=== PATIENT | female | born 1940 | race Caucasian/White ===

== ENCOUNTER → 2017-03-13 | Outpatient (CLI) | payer MEDICARE, BC ==
--- NOTE | 2017-03-14 12:52 | MM ---
Reason for exam: screening (asymptomatic). Last mammogram was performed 1 year and 1 month ago. History: Patient is postmenopausal and has history of other cancer at age 68. Family history of breast cancer in maternal aunt. Benign right mammotome panel of the right breast, February 06, 2013. Took estrogen for 5 years beginning at age 48. Physical Findings: A clinical breast exam by your physician is recommended on an annual basis and results should be correlated with mammographic findings. MG 3D Screening Mammo W/Cad Bilateral CC and MLO view(s) were taken. Prior study comparison: February 08, 2016, bilateral MG 3d screening mammo w/cad. February 04, 2015, bilateral MG 3d diag mammo w/cad KATIANA. The breast tissue is heterogeneously dense. This may lower the sensitivity of mammography. Finding: There are typically benign round, linear calcifications in both breasts. Previous mammotome biopsy in the right and left breast. There is no discrete abnormality. ASSESSMENT: Benign, BI-RAD 2 RECOMMENDATION: Routine screening mammogram of both breasts in 1 year.
== END | disposition home or self-care (01) ==
LOC: RADMAMWWP 13:10
PROVIDERS: ATTEND Family Medicine
DX: Z12.31 Encounter for screening mammogram for malignant neoplasm of breast (principal)
CPT/HCPCS: 77063; 77067

== ENCOUNTER → 2017-03-19 | Outpatient (CLI) | payer MEDICARE, BC ==
[~2017-03-19] MED LIST: DENOSUMAB 60 MG/ML 1 ML SYRINGE SQ ONE
[2017-03-19 14:10] VITALS: BP 123/58; PULSE 63; RESP 14; TEMP 98.3
== END | disposition home or self-care (01) ==
LOC: PROCWHC3 13:14
PROVIDERS: ATTEND Family Medicine
DX: M81.0 Age-related osteoporosis without current pathological fracture (principal)
CPT/HCPCS: 96372; J0897

== ENCOUNTER 2017-07-26 23:35 | Observation (INO) | payer MEDICARE, BC ==
[2017-07-26] MEDS ORDERED: NITROGLYCERIN SL TABS 0.4 MG TAB SUBLINGUAL STA (23:49)
[2017-07-26] MEDS ORDERED: NITROGLYCERIN OINT 1 INCH/GM PACKET TOPICAL STA (23:49)
--- NOTE | 2017-07-26 23:51 | ED ---
Chest Pain HPI - General Chief Complaint: Chest Pain Stated Complaint: Chest Pain Time Seen by Provider: 07/26/17 23:41 Source: patient, EMS Mode of arrival: EMS Limitations: no limitations - History of Present Illness MD Complaint: chest pain Onset/Timin -: hour(s) Onset: during rest Pain Location: substernal, epigastric Pain Radiation: none Severity: mild Quality: other (Pressure) Consistency: now resolved Improves With: nitroglycerin Worsens With: nothing Anginal Symptoms: nausea, diaphoresis Treatments Prior to Arrival: aspirin, nitroglycerin, oxygen - Related Data Home Medications Medication Instructions Recorded Confirmed Denosumab [Prolia] 60 mg SQ Q6M 08/17/13 03/19/17 Levothyroxine Sodium [Synthroid] 112 mcg PO DAILY 08/17/13 03/19/17 Acetaminophen/Diphenhydramine 1 tab PO HS 08/18/14 03/19/17 [Tylenol PM 500-25mg] Cholecalciferol [Vitamin D3] 2,000 unit PO DAILY@1200 08/18/14 03/19/17 Glucosamine/Chondr Gilliland A Sod [Osteo 1 each PO BID 08/18/14 03/19/17 Bi-Flex Caplet] Calcium Carbonate [Calcium] 600 mg PO 03/19/17 Valsartan [Diovan] 40 mg PO DAILY 03/19/17 03/19/17 Allergies Allergy/AdvReac Type Severity Reaction Status Date / Time No Known Allergies Allergy Verified 07/26/17 23:46 Review of Systems ROS Statement: Those systems with pertinent positive or pertinent negative responses have been documented in the HPI. ROS Other: All systems not noted in ROS Statement are negative. Constitutional: Denies: fever, chills Respiratory: Reports: as per HPI, dyspnea. Denies: cough Cardiovascular: Reports: chest pain. Denies: palpitations, orthopnea, edema, syncope Gastrointestinal: Reports: nausea. Denies: abdominal pain, vomiting Genitourinary: Denies: dysuria Musculoskeletal: Denies: back pain Skin: Denies: rash Neurological: Denies: headache, weakness, numbness EKG Findings - EKG Results: EKG: interpreted by BHANU, sinus rhythm (Rate is proximal 63 bpm) - Blocks, Castile, Hypertrophy, ST Abn: AV and intraventricular conduction: left anterior fascicular block Past Medical History Past Medical History: Cancer, Eye Disorder, Thyroid Disorder Additional Past Medical History / Comment(s): SEE DR SANTANA'S H&P, HX THYROID , SKIN AND CERVICAL CANCER. History of Any Multi-Drug Resistant Organisms: None Reported Past Surgical History: Cholecystectomy, Hernia Repair, Hysterectomy, Orthopedic Surgery Additional Past Surgical History / Comment(s): KATIANA CATARACT, THYROIDECTOMY-2006 , MELANOMA REMOVED X2. Past Anesthesia/Blood Transfusion Reactions: Postoperative Nausea & Vomiting ( PONV) Past Psychological History: No Psychological Hx Reported Smoking Status: Never smoker Past Alcohol Use History: None Reported Past Drug Use History: None Reported General Exam Limitations: no limitations General appearance: alert, in no apparent distress Head exam: Present: atraumatic, normocephalic Eye exam: Present: normal appearance. Absent: scleral icterus, conjunctival injection Neck exam: Present: normal inspection Respiratory exam: Present: normal lung sounds bilaterally. Absent: respiratory distress, wheezes, rales, rhonchi, stridor Cardiovascular Exam: Present: regular rate, normal rhythm, systolic murmur ( Grade 1/6 systolic ejection murmur). Absent: normal heart sounds, diastolic murmur, rubs, gallop GI/Abdominal exam: Present: soft. Absent: distended, tenderness, guarding, rebound, mass Extremities exam: Present: normal inspection, normal capillary refill. Absent: pedal edema, calf tenderness Back exam: Present: normal inspection. Absent: CVA tenderness (R), CVA tenderness (L) Neurological exam: Present: alert Skin exam: Present: warm, dry, intact, normal color. Absent: rash Course Vital Signs 07/26/17 07/27/17 07/27/17 23:39 00:32 00:46 Temperature 99.3 F Pulse Rate 62 77 Respiratory 18 20 18 Rate Blood Pressure 163/70 124/71 O2 Sat by Pulse 99 97 Oximetry 07/27/17 01:30 Temperature 97.4 F L Pulse Rate 80 Respiratory 18 Rate Blood Pressure 126/70 O2 Sat by Pulse 98 Oximetry Disposition Clinical Impression: Chest pain Disposition: ADMITTED IP TO THIS HOSP Condition: Fair Is patient prescribed a controlled substance at d/c from ED?: No
[2017-07-27 00:09] LABS: Basophils % (A) 1 %; Eosinophils # (A) 0.3 k/uL (0-0.7); Eosinophils % (A) 5 %; HCT 31.2 % (34.0-46.0); HGB 10.4 gm/dL (11.4-16.0); Lymphocytes # (A) 2.1 k/uL (1.0-4.8); Lymphocytes % (A) 37 %; MCH 30.2 pg (25.0-35.0); MCHC 33.4 g/dL (31.0-37.0); MCV 90.5 fL (80.0-100.0); Mean Platelet Volume 6.9; Monocytes # (A) 0.4 k/uL (0-1.0); Monocytes % (A) 6 %; Neutrophils # (A) 2.8 k/uL (1.3-7.7); Neutrophils % (A) 48 %; Platelet Count 251 k/uL (150-450); RBC 3.45 m/uL (3.80-5.40); RDW 13.2 % (11.5-15.5); WBC 5.8 k/uL (3.8-10.6)
[2017-07-27 00:17] LABS: Albumin 3.3 g/dL (3.5-5.0); Calcium 9.1 mg/dL (8.4-10.2); Magnesium 1.7 mg/dL (1.6-2.3); Potassium 3.7 mmol/L (3.5-5.1); Total Bilirubin 0.3 mg/dL (0.2-1.3); Total Protein 5.6 g/dL (6.3-8.2)
[2017-07-27 00:23] LABS: INR 1.1 (<1.2); Prothrombin Time 10.6 sec (9.0-12.0)
--- NOTE | 2017-07-27 00:35 | XR ---
EXAMINATION TYPE: XR chest 1V portable DATE OF EXAM: 07/27/2017 COMPARISON: 04/23/2013 HISTORY: Chest pain TECHNIQUE: Single frontal view of the chest is obtained. FINDINGS: Heart is normal. Lungs are clear of consolidation. There is a 1.5 cm calcific density in t he left midlung. There is no pleural effusion. There are chest leads. Diaphragm is normal. IMPRESSION: Calcification in the left midlung is consistent with a granuloma that is increased sligh tly compared to old exam. Normal heart. No heart failure.
[2017-07-27 00:39] LABS: Partial Thromboplastin Time 21.6 sec (22.0-30.0)
[2017-07-27] MEDS ORDERED: NITROGLYCERIN SL TABS 0.4 MG TAB SUBLINGUAL PRN (01:12)
[2017-07-27] MEDS ORDERED: ENOXAPARIN 80 MG/0.8 ML SYRINGE SQ STA (01:16)
[2017-07-27 01:47] VITALS: BMI 26.8
[2017-07-27] MEDS: LEVOTHYROXINE 112 MCG TAB PO SCH (06:28)
[2017-07-27 06:48] LABS: Creatine Kinase 39 U/L (30-135)
[2017-07-27 07:02] LABS: Creatine Kinase MB 0.4 ng/mL (0.0-2.4); Troponin I <0.012 ng/mL (0.000-0.034)
[2017-07-27] MEDS: CALCIUM CARBONATE 500 MG CHEWABLE PO SCH (08:29)
[2017-07-27] MEDS: VALSARTAN 40 MG TAB PO SCH (09:19)
[2017-07-27] MEDS ORDERED: Potassium Replacement Protocol 1 EACH MISC MISCELLANE PRN (09:43)
[2017-07-27] MEDS ORDERED: Magnesium Replacement Protocol 1 EACH MISC MISCELLANE PRN (09:44)
[2017-07-27] MEDS ORDERED: POTASSIUM CHLORIDE ER 20 MEQ TAB.ER PO SCH (10:00)
[2017-07-27] MEDS: MAGNESIUM SULFATE-D5W PMX 1 GM in DEXTROSE/WATER 1 100ML.BAG IVPB SCH ×2 (10:36→15:58)
[2017-07-27] MEDS: METOPROLOL TARTRATE 12.5 MG TAB PO SCH ×2 (10:36→20:08)
[2017-07-27] MEDS ORDERED: CHOLECALCIFEROL 1,000 UNIT TAB PO SCH (12:00)
[2017-07-27 13:08] LABS: Creatine Kinase 34 U/L (30-135)
[2017-07-27] MEDS: ENOXAPARIN 80 MG/0.8 ML SYRINGE SQ SCH ×2 (13:16→20:08)
[2017-07-27 13:21] LABS: Creatine Kinase MB 0.3 ng/mL (0.0-2.4); Troponin I <0.012 ng/mL (0.000-0.034)
--- NOTE | 2017-07-27 14:08 | P.HPIM ---
History of Present Illness H&P Date: 07/27/17 This is a 77-year-old female with past medical history noted below who presented to the emergency room with chest discomfort. Patient said that her pain started last night when she was getting ready for bed. She described her pain as heaviness deep in her chest. She said that this started all of a sudden. He was not associated with any exertion. No radiation. No shortness of breath or dizziness. Patient was unable to get comfortable in bed and was concerned enough to come to the emergency room. In the emergency room, 12-lead EKG showed no acute ischemic changes. She is currently chest pain-free. Serial troponin negative 3 sets. Patienton observation awaiting cardiology evaluation. Review of Systems Review of system: 14 points review of systems were obtained and were negative except to what were mentioned in the HPI. Past Medical History Past Medical History: Cancer, Chest Pain / Angina, Eye Disorder, Thyroid Disorder Additional Past Medical History / Comment(s): SEE DR SANTANA'S H&P, HX THYROID , SKIN AND CERVICAL CANCER. History of Any Multi-Drug Resistant Organisms: None Reported Past Surgical History: Cholecystectomy, Hernia Repair, Hysterectomy, Orthopedic Surgery Additional Past Surgical History / Comment(s): KATIANA CATARACT, THYROIDECTOMY-2006 , MELANOMA REMOVED X2. Past Anesthesia/Blood Transfusion Reactions: Postoperative Nausea & Vomiting ( PONV) Past Psychological History: No Psychological Hx Reported Smoking Status: Never smoker Past Alcohol Use History: None Reported Additional Past Alcohol Use History / Comment(s): states drinks a glass of wine once a month Past Drug Use History: None Reported Medications and Allergies Home Medications Medication Instructions Recorded Confirmed Type Denosumab [Prolia] 60 mg SQ Q180D 08/17/13 07/27/17 History Levothyroxine Sodium [Synthroid] 112 mcg PO DAILY 08/17/13 07/27/17 History Acetaminophen/Diphenhydramine 1 tab PO HS PRN 08/18/14 07/27/17 History [Tylenol PM 500-25mg] Cholecalciferol [Vitamin D3] 2,000 unit PO DAILY 08/18/14 07/27/17 History Glucosamine/Chondr Gilliland A Sod [Osteo 1 tab PO BID 08/18/14 07/27/17 History Bi-Flex Caplet] Calcium Carbonate [Calcium] 600 mg PO MOWEFR 03/19/17 07/27/17 History Valsartan [Diovan] 40 mg PO DAILY 03/19/17 07/27/17 History Allergies Allergy/AdvReac Type Severity Reaction Status Date / Time No Known Allergies Allergy Verified 07/27/17 12:12 Physical Exam Vitals: Vital Signs Temp Pulse Pulse Resp BP BP Pulse Ox 07/27/17 11:42 52 L 18 119/58 96 07/27/17 08:00 97.9 F 55 L 18 102/49 96 07/27/17 03:30 97.4 F L 58 L 18 111/55 98 07/27/17 02:19 99 07/27/17 01:45 97.0 F L 54 L 18 145/65 99 07/27/17 01:30 97.4 F L 80 18 126/70 98 07/27/17 00:46 77 18 124/71 97 07/27/17 00:32 20 07/26/17 23:39 99.3 F 62 18 163/70 99 Intake and Output 07/26/17 07/27/17 07/27/17 22:59 06:59 14:59 Intake Total 0 Balance 0 Intake: Oral 0 Other: # Voids 1 Weight 70.9 kg General: The patient is awake and alert, in no distress Eye: there is normal conjunctiva bilaterally. Neck: The neck is supple, there is no JVD. Cardiovascular: Normal S1-S2, no S3-S4, no murmurs. Respiratory: Lungs clear to auscultation bilaterally Gastrointestinal: Abdomen is soft, nontender Musculoskeletal: There is no pedal edema. Neurological:. Speech is normal. Skin: Skin is warm and dry Results CBC & Chem 7: 07/26/17 23:50 07/26/17 23:50 Labs: Abnormal Lab Results - Last 24 Hours (Table) 07/26/17 07/26/17 07/26/17 Range/Units 23:50 23:50 23:50 RBC 3.45 L (3.80-5.40) m/uL Hgb 10.4 L (11.4-16.0) gm/dL Hct 31.2 L (34.0-46.0) % APTT 21.6 L (22.0-30.0) sec BUN 20 H (7-17) mg/dL Glucose 126 H (74-99) mg/dL Total Protein 5.6 L (6.3-8.2) g/dL Albumin 3.3 L (3.5-5.0) g/dL Thrombosis Risk Factor Assmnt - Choose All That Apply Any of the Below Risk Factors Present?: No Other Risk Factors: Yes Each Risk Factor Represents 3 Points: Age 75 years or older Other congenital or acquired thrombophilia - If yes, enter type in comment: No Thrombosis Risk Factor Assessment Total Risk Factor Score: 3 Thrombosis Risk Factor Assessment Level: Moderate Risk Assessment and Plan Assessment: 1. Chest pain, mostly atypical in nature. 12-lead EKG showed no acute ischemic changes. Serial troponin negative 3 sets. Patient was seen and evaluated by cardiology. She was started on anticoagulation with Lovenox for unclear reasons to me. I would clarify further with cardiology. Will continue medical management otherwise. Obtain echocardiogram. 2. Essential hypertension: Blood pressure well-controlled 3. Bradycardia, patient was also started on metoprolol by cardiology so we will monitor her heart rate closely. Currently in the low 50s.
[2017-07-27] MEDS ORDERED: ACETAMINOPHEN TAB 500 MG TAB PO SCH (21:00)
[2017-07-27] MEDS ORDERED: diphenhydrAMINE 25 MG CAP PO SCH (21:00)
--- NOTE | 2017-07-28 03:58 | CONS ---
CONSULTATION Gina Reyes is a 77-year-old lady with a history of thyroid cancer, hypertension who presented to the hospital with episode of chest pain. She actually had discomfort in the chest at home, called in EMS and was brought into the hospital. Apparently, she was given nitroglycerin en route and obtained immediate relief of chest pain. She also had another nitroglycerin in the hospital. However, no further pain. She is asymptomatic. Troponins are normal. She is resting comfortably. EKG is unremarkable. PAST MEDICAL HISTORY: 1. Remarkable for thyroid cancer status post surgery and on suppressive therapy. 2. Has history of hypertension. ALLERGIES: None. MEDICATIONS: Include Diovan 40 mg daily, calcium supplements, Synthroid 112 mcg daily and vitamin D supplements. The patient is status post a loop recorder and a tilt test that was performed by Dr. Howell in January 2016. She has not had any issues since she had the loop recorder in terms of syncope or near syncope. EXAMINATION: Blood pressure is 118/70, pulse rate is 60 per minute. There is were no orthostatic changes. HEENT: Unremarkable. Fundus was not examined by me neck is. NECK: Supple. There is no JVD. There is a left-sided carotid bruit. HEART: Reveals a 2/6 ejection systolic murmur at the base with preserved second heart sounds. LUNGS: Clear. ABDOMEN: Soft, nontender. Lower extremities reveal diminished pulses. No edema. Central nervous system is grossly within normal limits. EKG revealed a sinus mechanism with the left anterior fascicular block. No acute changes. LABORATORY DATA: Reveals that 2 sets of troponins are normal. IMPRESSION: 1. Chest pain, cannot exclude angina. She obtained relief with nitroglycerin. 2. History of syncope in the past but no recent issues. Has a loop recorder in place. 3. History of hypertension. 4. History of thyroid cancer status post surgery and on suppressive therapy. RECOMMENDATIONS: I am recommending that we will continue Lovenox and monitor her very closely and see how she does. I will continue the Lovenox for the time being, place her on a very small dose of metoprolol tartrate 12.5 mg b.i.d. and increase activity and if she has no further chest pain, I will consider the stress test, but if she has any symptoms we should consider cardiac catheterization. I discussed my thoughts in detail with the patient and her . Thank you very much for the consult. JAYCOB / MICHELL: [id number] /
[2017-07-28] MEDS: LEVOTHYROXINE 112 MCG TAB PO SCH (06:22)
[2017-07-28 06:42] LABS: Magnesium 2.2 mg/dL (1.6-2.3)
--- NOTE | 2017-07-28 07:54 | ECHOF ---
Referral Reason:chest pain MEASUREMENTS -------- HEIGHT: 162.6 cm WEIGHT: 70.8 kg BP: 102/49 RVIDd: 2.9 cm (< 3.3) IVSd: 1.3 cm (0.6 - 1.1) LVIDd: 3.5 cm (3.9 - 5.3) LVPWd: 1.3 cm (0.6 - 1.1) IVSs: 1.5 cm LVIDs: 2.3 cm LVPWs: 1.5 cm LAESV Index (A-L): 28.41 ml/m Ao Diam: 2.5 cm (2.0 - 3.7) AV Cusp: 1.5 cm (1.5 - 2.6) LA Diam: 3.3 cm (2.7 - 3.8) EPSS: 0.6 cm MV E Jefferson: 0.84 m/s MV DecT: 259 ms MV A Jefferson: 0.97 m/s MV E/A Ratio: 0.86 RAP: 5.00 mmHg RVSP: 23.18 mmHg MV EF SLOPE: 108.77 mm/s (70 - 150) MV EXCURSION: 1.49 cm (> 18.000) FINDINGS -------- Resting bradycardia (HR<60bpm). This was a technically good study. The left ventricular size is normal. There is mild concentric left ventricular hypertrophy. Overa ll left ventricular systolic function is normal with, an EF between 55 - 60 %. The right ventricle is normal in size and function. Normal LA size by volume 22+/-6 ml/m2. RA appears enlarged. Aortic valve is trileaflet and is mildly thickened. There is no evidence of aortic regurgitation. There is no evidence of aortic stenosis. The mitral valve leaflets are mildly thickened. There is trace to mild mitral regurgitation. Trace tricuspid regurgitation present. Right ventricular systolic pressure is normal at < 35 mmHg. There is no evidence of pulmonary hypertension. Trace/mild (physiologic) pulmonic regurgitation. The aortic root size is normal. Normal inferior vena cava with normal inspiratory collapse consistent with estimated right atrial pre ssure of 5 mmHg. There is no pericardial effusion. CONCLUSIONS -------- 1. Resting bradycardia (HR<60bpm). 2. This was a technically good study. 3. The left ventricular size is normal. 4. There is mild concentric left ventricular hypertrophy. 5. Overall left ventricular systolic function is normal with, an EF between 55 - 60 %. 6. Normal LA size by volume 22+/-6 ml/m2. 7. RA appears enlarged. 8. Aortic valve is trileaflet and is mildly thickened. 9. The mitral valve leaflets are mildly thickened. 10. There is trace to mild mitral regurgitation. 11. Trace tricuspid regurgitation present. 12. Right ventricular systolic pressure is normal at < 35 mmHg. 13. There is no evidence of pulmonary hypertension. 14. Trace/mild (physiologic) pulmonic regurgitation. 15. The aortic root size is normal. 16. There is no pericardial effusion. COMPUTER NETWORKING INSTRUCTOR: Sunny Alva RDCS
[2017-07-28] MEDS: CALCIUM CARBONATE 500 MG CHEWABLE PO SCH (08:00)
[2017-07-28] MEDS: VALSARTAN 40 MG TAB PO SCH (08:00)
[2017-07-28] MEDS: METOPROLOL TARTRATE 12.5 MG TAB PO SCH (08:00)
[2017-07-28] MEDS: ENOXAPARIN 80 MG/0.8 ML SYRINGE SQ SCH (08:00)
[2017-07-28 08:02] VITALS: BP 110/54; PULSE 52; RESP 16; TEMP 98.2
[2017-07-28 08:33] LABS: Calcium 8.8 mg/dL (8.4-10.2); Potassium 4.3 mmol/L (3.5-5.1)
[2017-07-28] MEDS ORDERED: ASPIRIN 325 MG TAB PO SCH (09:00)
[2017-07-28] MEDS ORDERED: ASPIRIN 81 MG PO SCH (09:00)
--- NOTE | 2017-07-28 13:59 | PN ---
PROGRESS NOTE Mrs. Reyes came in with chest pain with some relief with nitroglycerin but since her presentation to the hospital, she has not had recurrence of chest pain. Troponins are normal. She has ambulated to the hallways without symptoms. I am recommending that she can be discharged and we will perform a stress test as an outpatient. She sees Dr. Howell in the outpatient setting and I will make arrangements for the stress test to be performed and then she will see him. Vital signs are stable. S1-S2 heard normally. Lungs are clear. Abdomen is soft, nontender. Lower extremities reveal normal pulses. No edema. Central nervous system is normal. Patient can be discharged later on today. MMODL / IJN: [id number] /
== END 2017-07-28 12:29 | disposition home or self-care (01) ==
LOC: EC 23:35 → 6SEL 07-27 01:13
PROVIDERS: ADMIT Internal Medicine; ATTEND Internal Medicine
DX: R07.89 Other chest pain (principal); R61 Generalized hyperhidrosis; R11.0 Nausea; I10 Essential (primary) hypertension; R00.1 Bradycardia, unspecified; E07.9 Disorder of thyroid, unspecified; Z79.890 Hormone replacement therapy; Z79.899 Other long term (current) drug therapy; Z86.79 Personal history of other diseases of the circulatory system; Z85.850 Personal history of malignant neoplasm of thyroid; Z85.41 Personal history of malignant neoplasm of cervix uteri; Z85.820 Personal history of malignant melanoma of skin; Z90.710 Acquired absence of both cervix and uterus; Z90.49 Acquired absence of other specified parts of digestive tract
CPT/HCPCS: 36415; 71045; 80048; 80053; 80061; 82550; 82553; 83735; 84484; 85025; 85610; 85730; 93005; 93306; 96365; 96366; 96372; 99285

== ENCOUNTER → 2017-09-17 | Outpatient (CLI) | payer MEDICARE, BC ==
[2017-09-17 09:23] VITALS: BP 132/65; PULSE 65; RESP 16; TEMP 98.3
== END | disposition home or self-care (01) ==
LOC: PROCWHC3 09:10
PROVIDERS: ATTEND Family Medicine
DX: M81.0 Age-related osteoporosis without current pathological fracture (principal)
CPT/HCPCS: 96372; J0897

== ENCOUNTER → 2017-11-22 | Outpatient (CLI) | payer MEDICARE, BC ==
--- NOTE | 2017-11-22 11:26 | US ---
EXAMINATION TYPE: US duplex aorta DATE OF EXAM: 11/22/2017 COMPARISON: NONE CLINICAL HISTORY: R91.8 soft tissue nod R68.89 abnorm finding. No family hx of AAA, nonsmoker. High cholesterol- no meds. HTN controlled with meds. Per patient, x-ray showed aortic bulge EXAM MEASUREMENTS: Abdominal Aorta: Proximal: 2.2 x 1.7 cm Mid: 1.7 x 1.6 cm Distal: 1.3 x 1.1 cm Bifurcation: Right- 0.9 x 0.7 cm Left- 1.0 x 0.7 cm IMPRESSION: Plaque seen. No AAA visualized.
== END ==
LOC: RADUSWWP 10:48
PROVIDERS: ATTEND Family Medicine
DX: I70.0 Atherosclerosis of aorta (principal)
CPT/HCPCS: 93979

== ENCOUNTER → 2018-03-25 | Outpatient (CLI) | payer MEDICARE, BC ==
[2018-03-25 11:11] VITALS: BP 150/81; PULSE 64; RESP 18; TEMP 97.6
== END | disposition home or self-care (01) ==
LOC: PROCWHC3 10:45
PROVIDERS: ATTEND Family Medicine
DX: M81.0 Age-related osteoporosis without current pathological fracture (principal)
CPT/HCPCS: 96372; J0897

== ENCOUNTER 2018-04-16 07:57 | Day surgery (SDC) | payer MEDICARE, BC ==
[2018-04-14 09:02] VITALS: BMI 24.6
[~2018-04-16 07:57] MED LIST changes: -DENOSUMAB 60 MG/ML 1 ML SYRINGE SQ ONE; +LACTATED RINGERS 1,000 ML IV SCH; +LIDOCAINE 1% 20 ML VIAL (10MG/ML) FOR IV START INTRADERMA PRN
[2018-04-16 08:47] VITALS: TEMP 97.8
[2018-04-16] MEDS ORDERED: PROPOFOL 10 MG/ML 20 ML VIAL IV ONE (08:48)
--- NOTE | 2018-04-16 08:50 | P.GSHP ---
History of Present Illness H&P Date: 04/16/18 Chief Complaint: Colon cancer screening Patient here today for colonoscopy. Last colonoscopy over 5 years ago. Personal history of colon polyps. No family history colon cancer. No bowel related complaints. Past Medical History Past Medical History: Cancer, Chest Pain / Angina, Hypertension, Thyroid Disorder Additional Past Medical History / Comment(s): HX THYROID, SKIN AND CERVICAL CANCER. History of Any Multi-Drug Resistant Organisms: None Reported Past Surgical History: Cholecystectomy, Hernia Repair, Hysterectomy, Orthopedic Surgery Additional Past Surgical History / Comment(s): KATIANA CATARACT, THYROIDECTOMY-2005 , MELANOMA REMOVED X2., LT KNEE SX, COLONOSCOPY Past Anesthesia/Blood Transfusion Reactions: Postoperative Nausea & Vomiting ( PONV) Smoking Status: Never smoker - Past Family History Mother Family Medical History: No Reported History Medications and Allergies Home Medications Medication Instructions Recorded Confirmed Type Denosumab [Prolia] 60 mg SQ Q180D 08/17/13 04/16/18 History Levothyroxine Sodium [Synthroid] 112 mcg PO DAILY 08/17/13 04/16/18 History Cholecalciferol [Vitamin D3] 2,000 unit PO DAILY 08/18/14 04/16/18 History Glucosamine/Chondr Gilliland A Sod [Osteo 1,500 mg PO DAILY 08/18/14 04/16/18 History Bi-Flex Caplet] Calcium Carbonate [Calcium] 600 mg PO MOWEFR 03/19/17 04/16/18 History Aspirin [Adult Low Dose Aspirin EC] 81 mg PO DAILY 07/28/17 04/16/18 History Atorvastatin [Lipitor] 20 mg PO DAILY 03/25/18 04/16/18 History Isosorbide Mononitrate ER [Imdur] 30 mg PO DAILY 03/25/18 04/16/18 History Losartan Potassium 50 mg PO DAILY 03/25/18 04/16/18 History Nitroglycerin 0.4 mg SL DAILY PRN 03/25/18 04/16/18 History diphenhydrAMINE [Benadryl] 25 - 50 mg PO HS PRN 03/25/18 04/16/18 History Ipratropium [employer] 0.06%Nasal 1 - 2 sprays EA NOSTRIL DAILY 04/14/18 04/16/18 History [Atrovent Nasal 0.06%] Magnesium 200 mg PO DAILY 04/14/18 04/16/18 History Allergies Allergy/AdvReac Type Severity Reaction Status Date / Time No Known Allergies Allergy Verified 04/16/18 08:32 Surgical - Exam Vital Signs Temp Pulse Resp BP Pulse Ox 97.8 F 65 14 148/67 96 04/16/18 08:38 04/16/18 08:38 04/16/18 08:38 04/16/18 08:38 04/16/18 08:38 Physical exam: General: Well-developed, well-nourished HEENT: Normocephalic, sclerae nonicteric Abdomen: Nontender, nondistended Extremities: No edema Neuro: Alert and oriented Assessment and Plan (1) Colon cancer screening Narrative/Plan: Will proceed with colonoscopy at this time Current Visit: Yes Status: Acute Code(s): Z12.11 - ENCOUNTER FOR SCREENING FOR MALIGNANT NEOPLASM OF COLON SNOMED Code(s): 975290442
--- NOTE | 2018-04-16 09:05 | P.PCN ---
Date of Procedure: 04/16/18 Procedure(s) Performed: PREOPERATIVE DIAGNOSIS: Colon cancer screening, history of polyps POSTOPERATIVE DIAGNOSIS: Diverticulosis PROCEDURE: Colonoscopy ANESTHESIA: MAC SURGEON: Curt Lei M.D. SPECIMENS: None ENDOSCOPIC PROCEDURE: The patient was placed on the endoscopy table in the left decubitus position. The Olympus colonoscope was inserted into the anus and passed under direct visualization to the base of the cecum. The appendiceal orifice was visualized. From that point the scope was slowly withdrawn inspecting all surfaces carefully. There were no neoplastic inflammatory or polypoid lesions throughout the cecum, ascending, transverse, descending, sigmoid and rectum. There was moderate left-sided diverticulosis noted. Digital rectal examination was normal. The patient was taken to the recovery room in stable condition per anesthesia guidelines. RECOMMENDATIONS: Increase fiber. Follow-up colonoscopy 5 years.
[2018-04-16 09:10] VITALS: RESP 16
[2018-04-16 09:24] VITALS: PULSE 55
[2018-04-16 09:39] VITALS: BP 136/67
== END 2018-04-16 10:00 | disposition home or self-care (01) ==
LOC: ORWHC2ENDO 07:57
PROVIDERS: ATTEND Surgery
DX: Z12.11 Encounter for screening for malignant neoplasm of colon (principal); K57.30 Diverticulosis of large intestine without perforation or abscess without bleeding; Z86.010 Personal history of colon polyps; I25.119 Atherosclerotic heart disease of native coronary artery with unspecified angina pectoris; I10 Essential (primary) hypertension; E89.0 Postprocedural hypothyroidism; Z85.41 Personal history of malignant neoplasm of cervix uteri; Z85.850 Personal history of malignant neoplasm of thyroid; Z85.820 Personal history of malignant melanoma of skin; Z79.82 Long term (current) use of aspirin; Z79.890 Hormone replacement therapy; Z79.899 Other long term (current) drug therapy
CPT/HCPCS: J2704; G0121

== ENCOUNTER → 2018-04-25 | Outpatient (CLI) | payer MEDICARE, BC ==
--- NOTE | 2018-04-28 14:00 | MM ---
Reason for exam: screening (asymptomatic). Last mammogram was performed 1 year and 1 month ago. History: Patient is postmenopausal and has history of other cancer at age 68. Family history of breast cancer in maternal aunt. Benign right mammotome panel of the right breast, February 06, 2013. Took estrogen for 5 years beginning at age 48. Physical Findings: A clinical breast exam by your physician is recommended on an annual basis and results should be correlated with mammographic findings. MG 3D Screening Mammo W/Cad Bilateral CC and MLO view(s) were taken. Prior study comparison: March 13, 2017, bilateral MG 3d screening mammo w/cad. February 08, 2016, bilateral MG 3d screening mammo w/cad. The breast tissue is heterogeneously dense. This may lower the sensitivity of mammography. Previous mammotome biopsy in the right breast. No significant changes when compared with prior studies. ASSESSMENT: Benign, BI-RAD 2 RECOMMENDATION: Routine screening mammogram of both breasts in 1 year.
== END | disposition home or self-care (01) ==
LOC: RADMAMWWP 14:20
PROVIDERS: ATTEND Family Medicine
DX: Z12.31 Encounter for screening mammogram for malignant neoplasm of breast (principal)
CPT/HCPCS: 77063; 77067

== ENCOUNTER → 2018-05-01 | Outpatient (CLI) | payer MEDICARE, BC ==
--- NOTE | 2018-05-01 12:55 | XR ---
EXAMINATION TYPE: XR knee complete LT DATE OF EXAM: 05/01/2018 CLINICAL HISTORY: Left-sided meniscal tear and surgery 2009 with pain TECHNIQUE: Weightbearing Three views of the left knee are obtained. COMPARISON: None. FINDINGS: There is no acute fracture/dislocation evident in left knee. There is moderate to severe n arrowing with mild to moderate spurring medial tibiofemoral and patellofemoral compartments. Meniscal calcification consistent chondrocalcinosis is seen lateral tibiofemoral compartment. The overlying s oft tissue appears unremarkable. IMPRESSION: As above.
== END ==
LOC: RADXRMAIN 12:25
PROVIDERS: ATTEND Family Medicine
DX: M17.12 Unilateral primary osteoarthritis, left knee (principal)

== ENCOUNTER → 2019-08-17 | Outpatient (CLI) | payer MEDICARE, BC ==
[2019-08-17 09:35] LABS: HCT 32.4 % (34.0-46.0); HGB 10.7 gm/dL (11.4-16.0); MCH 31.2 pg (25.0-35.0); MCHC 32.9 g/dL (31.0-37.0); MCV 94.9 fL (80.0-100.0); Mean Platelet Volume 6.7; Platelet Count 276 k/uL (150-450); RBC 3.41 m/uL (3.80-5.40); RDW 13.2 % (11.5-15.5)
[2019-08-17 10:02] LABS: Potassium 4.4 mmol/L (3.5-5.1)
== END | disposition home or self-care (01) ==
LOC: LABWHC1 08:56
PROVIDERS: ATTEND Internal Medicine Interventional Cardiology
DX: Z01.818 Encounter for other preprocedural examination (principal); R07.89 Other chest pain
CPT/HCPCS: 36415; 80051; 82565; 84520; 85027

== ENCOUNTER → 2019-08-20 | Outpatient (CLI) | payer MEDICARE, BC ==
--- NOTE | 2019-08-24 10:19 | MM ---
Reason for exam: screening (asymptomatic). Last mammogram was performed 1 year and 4 months ago. History: Patient is postmenopausal and has history of other cancer at age 68. Family history of breast cancer in maternal aunt. Benign right mammotome panel of the right breast, February 06, 2013. Took estrogen for 5 years beginning at age 48. Physical Findings: A clinical breast exam by your physician is recommended on an annual basis and results should be correlated with mammographic findings. MG 3D Screening Mammo W/Cad Bilateral CC and MLO view(s) were taken. Prior study comparison: April 25, 2018, bilateral MG 3d screening mammo w/cad. March 13, 2017, bilateral MG 3d screening mammo w/cad. The breast tissue is heterogeneously dense. This may lower the sensitivity of mammography. There are benign appearing round calcifications in the right breast. Previous mammotome biopsy in the right breast. There is chronic nodularity in the right breast. There is no discrete abnormality. ASSESSMENT: Benign, BI-RAD 2 RECOMMENDATION: Routine screening mammogram of both breasts in 1 year.
== END | disposition home or self-care (01) ==
LOC: RADMAMWWP 14:35
PROVIDERS: ATTEND Family Medicine
DX: Z12.31 Encounter for screening mammogram for malignant neoplasm of breast (principal)
CPT/HCPCS: 77063; 77067

== ENCOUNTER → 2019-08-25 | Day surgery (SDC) | payer MEDICARE, BC ==
[2019-08-21 13:15] VITALS: BMI 24.0
[~2019-08-25] MED LIST changes: +ALPRAZolam 0.25 MG TAB PO PRN; +ALPRAZolam 0.5 MG TAB PO PRN; +ASPIRIN 325 MG TAB PO ONE; +ATORVASTATIN 20 MG TAB PO SCH; +ATORVASTATIN 80 MG TAB PO ONE; +CHOLECALCIFEROL 1,000 UNIT TAB PO SCH; +HEPARIN SODIUM 1,000 UN/ML (10ML VL) IV ONE; +IOPAMIDOL-370 125ML BTL INJ ONE; +ISOSORBIDE MONONITRATE ER 30 MG TAB.ER.24H PO SCH; -LACTATED RINGERS 1,000 ML IV SCH; +LEVOTHYROXINE 137 MCG TAB PO SCH; +LEVOTHYROXINE SODIUM PO SCH; -LIDOCAINE 1% 20 ML VIAL (10MG/ML) FOR IV START INTRADERMA PRN; +LIDOCAINE 1% INJ 10MG/ML (20 ML MDV) SQ ONE; +LOSARTAN 50 MG TAB PO SCH; +MIDAZOLAM 2 MG/2 ML VIAL IVP ONE; +NITROGLYCERIN SL TABS 0.4 MG TAB SUBLINGUAL PRN; +NON FORMULARY DRUG (Aspirin [Adult Low Dose Aspirin Ec] 81 MG) PO SCH; +RX INFO: IV CONTRAST WAS GIVEN 1 EACH MISC MISCELLANE PRN; +SODIUM CHLORIDE 0.9% 1,000 ML IV SCH; +SODIUM CHLORIDE 0.9% 1,000 ML in EMPTY BAG 1 BAG IV ONE; +VERAPAMIL SYRINGE (5 MG/10 ML) INTRAARTER ONE; +fentaNYL (PF) 50 MCG/ML 2 ML AMP IVP ONE
[2019-08-25 06:31] VITALS: RESP 18; TEMP 98
--- NOTE | 2019-08-25 09:49 | CC ---
CARDIAC CATHETERIZATION REPORT Mrs. Reyes is an 79-year-old female with known history of hypertension, hyperlipidemia who is followed by Dr. Howell and has been complaining of recurrent episode of chest discomfort, resolving with nitroglycerin. After evaluation by Dr. Howell, recommendation made regarding cardiac catheterization. The procedures, risks, and complications were discussed with the patient who is in full understanding and agreement. PROCEDURE DETAILS: Patient was brought to catheterization laboratory technician in a fasting semi-sedated state, after receiving fentanyl and Benadryl and achieving moderate conscious sedated state. Using Xylocaine anesthesia and Seldinger technique, a 6-Ethiopian sheath was introduced in the right radial artery. Selective right and left coronary angiography performed using 5-Ethiopian 3 and half bend right and left Idania catheter. Multiple views of the coronary artery including amauri-axial views were obtained. Following that, 5-Ethiopian tight pigtail catheter was introduced in the left ventricle and pressures were calculated. Following that, catheter and sheath were removed. Hemostasis was obtained with a TR band. There was no immediate complication. The patient was returned to room in stable condition. Of note, the patient received 4000 units intravenous heparin as well as intra-arterial verapamil. FINDINGS: FLUOROSCOPY: There was calcification involving the left anterior descending artery. LEFT MAIN: This is a short size vessel bifurcating left circumflex, left anterior descending artery, left main coronary artery has no evidence of high-grade stenosis. LEFT ANTERIOR DESCENDING ARTERY: This is a large-sized vessel reaching towards the apex with a wraparound apex segment. The left anterior descending artery has no significant high-grade stenosis. LEFT CIRCUMFLEX: This is a nondominant large size vessel giving rise to 2 large obtuse marginal branch. The left circumflex as well as branches have no evidence of obstructive disease. RIGHT CORONARY ARTERY: This is a dominant vessel, large in caliber bifurcating distally to the PDA and posterolateral segment branches. The right coronary artery had catheter-induced spasm with no evidence of high-grade stenosis. Left ventriculogram was not performed. HEMODYNAMICS: There was no gradient across the aortic valve. The left ventricle end-diastolic pressure was 8-10 mmHg. CONCLUSION: 1. Calcified left anterior descending artery. 2. Catheter induced spasm in the right coronary artery. 3. Normal left ventricular end-diastolic pressure. RECOMMENDATIONS: In view of findings and anatomy, I recommend continue medical therapy with aggressive coronary risk factor modifications that have been initiated. Those findings and recommendations were discussed with the patient and her family and they are in full understanding and agreement. Duration procedure was minutes. MMODL / IJN: [id number] /
[2019-08-25 13:31] VITALS: BP 144/63; PULSE 62
== END | disposition home or self-care (01) ==
LOC: CATHCVL 05:51
PROVIDERS: ATTEND Internal Medicine Interventional Cardiology
DX: I25.110 Atherosclerotic heart disease of native coronary artery with unstable angina pectoris (principal); I25.84 Coronary atherosclerosis due to calcified coronary lesion; I44.4 Left anterior fascicular block; E78.5 Hyperlipidemia, unspecified; I10 Essential (primary) hypertension; R55 Syncope and collapse; Z95.818 Presence of other cardiac implants and grafts; Z82.49 Family history of ischemic heart disease and other diseases of the circulatory system; Z79.82 Long term (current) use of aspirin; Z79.890 Hormone replacement therapy; Z79.899 Other long term (current) drug therapy
CPT/HCPCS: 93458; C1769; C1894; J2250; J2001; J3010; J1644; Q9967

== ENCOUNTER 2020-03-13 11:33 | Observation (INO) | payer MEDICARE, BC ==
[2020-03-13 11:55] LABS: Glucose,Whole Blood 99 mg/dL (75-99)
[2020-03-13] MEDS ORDERED: SODIUM CHLORIDE 0.9% 500 ML 500 ML IV STA (11:57)
--- NOTE | 2020-03-13 12:02 | ED ---
General Adult HPI - General Chief complaint: Neuro Symptoms/Deficit Stated complaint: Speach problems Time Seen by Provider: 03/13/20 11:45 Source: patient, RN notes reviewed, old records reviewed Mode of arrival: ambulatory Limitations: no limitations - History of Present Illness Initial comments: This is an 79-year-old female presents emergency department because she had garbled speech earlier this morning and then again just prior to arrival. Deisy ent states this morning she woke up in the first time she spoke she was not making any sense according to her . Those symptoms lasted approximately one half hours and went away. Patient continued on with her day at about 45 minutes prior to arrival she tried to speak to her son on the phone and it was again garbled speech she states that episode only lasted a few minutes. Patient denies any other symptoms. Patient denies headache patient denies numbness weakness. Patient denies any problems walking or coordinating. Patient denies any lightheadedness or dizziness. Patient denies any chest pain palpitations difficulty breathing shortness breath per patient denies any recent fever chills or cough. He has no symptoms - Related Data Home Medications Medication Instructions Recorded Confirmed Levothyroxine Sodium [Synthroid] 112 mcg PO MOTUWETHFRSA 08/17/13 08/25/19 Cholecalciferol [Vitamin D3] 2,000 unit PO DAILY 08/18/14 08/25/19 Aspirin [Adult Low Dose Aspirin EC] 81 mg PO DAILY 07/28/17 08/25/19 Atorvastatin [Lipitor] 20 mg PO HS 03/25/18 08/25/19 Isosorbide Mononitrate ER [Imdur] 60 mg PO BID 03/25/18 08/25/19 Losartan Potassium 50 mg PO DAILY 03/25/18 08/25/19 Nitroglycerin 0.4 mg SL DAILY PRN 03/25/18 08/25/19 diphenhydrAMINE [Benadryl] 25 - 50 mg PO HS PRN 03/25/18 08/25/19 Levothyroxine Sodium [Tirosint] 56 mcg PO CARMEN 08/21/19 08/25/19 Allergies Allergy/AdvReac Type Severity Reaction Status Date / Time nickel Allergy Swelling, Verified 03/13/20 11:50 REDNESS Review of Systems ROS Statement: Those systems with pertinent positive or pertinent negative responses have been documented in the HPI. ROS Other: All systems not noted in ROS Statement are negative. Past Medical History Past Medical History: Cancer, Chest Pain / Angina, Eye Disorder, Thyroid Dis order Additional Past Medical History / Comment(s): SEE DR SANTANA'S H&P, HX THYROID, SKIN AND CERVICAL CANCER. History of Any Multi-Drug Resistant Organisms: None Reported Past Surgical History: Joint Replacement Additional Past Surgical History / Comment(s): KATIANA CATARACT, THYROIDECTOMY-2006, MELANOMA REMOVED X2. Right knee replavment Past Anesthesia/Blood Transfusion Reactions: Postoperative Nausea & Vomiting (PONV) Past Psychological History: No Psychological Hx Reported Smoking Status: Never smoker Past Alcohol Use History: None Reported, Occasional General Exam - General Exam Comments Initial Comments: GENERAL: Patient is well-developed and well-nourished. Patient is nontoxic and well- hydrated and is in no acute distress. ENT: Neck is soft and supple. No significant lymphadenopathy is noted. Oropharynx is clear. Moist mucous membranes. Neck has full range of motion without eliciting any pain. There is no thyroid enlargement and no masses were felt. EYES: The sclera were anicteric and conjunctiva were pink and moist. Extraocular movements were intact and pupils were equal round and reactive to light. Eyelids were unremarkable. PULMONARY: Unlabored respirations. Good breath sounds bilaterally. No audible rales rhonchi or wheezing was noted. CARDIOVASCULAR: There is a regular rate and rhythm without any murmurs gallops or rubs. ABDOMEN: Soft and nontender with normal bowel sounds. No palpable organomegaly was noted. There is no palpable pulsatile mass. SKIN: Skin is clear with no lesions or rashes and otherwise unremarkable. NEUROLOGIC: Patient is alert and oriented x3. Cranial nerves II through XII are grossly intact. Motor and sensory are also intact. Normal speech, volume and content. Symmetrical smile. NIH is 0 MUSCULOSKELETAL: Normal extremities with adequate strength and full range of motion. No lower extremity swelling or edema. No calf tenderness. LYMPHATICS: No significant lymphadenopathy is noted PSYCHIATRIC: Normal psychiatric evaluation. Limitations: no limitations Course Vital Signs 03/13/20 03/13/20 03/13/20 11:45 11:46 12:15 Temperature 97.7 F Pulse Rate 68 57 L Respiratory 16 15 Rate Blood Pressure 136/54 122/62 O2 Sat by Pulse 98 98 100 Oximetry 03/13/20 03/13/20 12:30 13:15 Temperature Pulse Rate 58 L Respiratory 14 Rate Blood Pressure 114/51 116/52 O2 Sat by Pulse 100 Oximetry Medical Decision Making - Medical Decision Making EKG shows normal sinus rhythm at 62 bpm [place] interval 180 QRSs 106 QT intervals 418 QTC is 424. Patient's EKG shows no ST segment elevation or depression. CT of the brain shows no acute normalities. CTA of the head and neck shows no acute abnormality. She had no further episodes of garbled speech on in the emergency department. [facility] the patient wrote admitting orders. - Lab Data Result diagrams: 03/13/20 12:03 03/13/20 12:03 Lab Results 03/13/20 03/13/20 03/13/20 Range/Units 11:54 12:03 12:03 WBC 6.9 (3.8-10.6) k/uL RBC 3.99 (3.80-5.40) m/uL Hgb 12.5 (11.4-16.0) gm/dL Hct 36.2 (34.0-46.0) % MCV 90.6 (80.0-100.0) fL MCH 31.3 (25.0-35.0) pg MCHC 34.6 (31.0-37.0) g/dL RDW 13.6 (11.5-15.5) % Plt Count 291 (150-450) k/uL MPV 7.0 Neutrophils % 65 % Lymphocytes % 25 % Monocytes % 6 % Eosinophils % 1 % Basophils % 1 % Neutrophils # 4.5 (1.3-7.7) k/uL Lymphocytes # 1.7 (1.0-4.8) k/uL Monocytes # 0.4 (0-1.0) k/uL Eosinophils # 0.1 (0-0.7) k/uL Basophils # 0.1 (0-0.2) k/uL PT 10.2 (9.0-12.0) sec INR 0.9 (<1.2) APTT 17.8 L (22.0-30.0) sec Sodium (137-145) mmol/L Potassium (3.5-5.1) mmol/L Chloride (98-107) mmol/L Carbon Dioxide (22-30) mmol/L Anion Gap mmol/L BUN (7-17) mg/dL Creatinine (0.52-1.04) mg/dL Est GFR (CKD-EPI)AfAm (>60 ml/min/1.73 sqM) Est GFR (CKD-EPI)NonAf (>60 ml/min/1.73 sqM) Glucose (74-99) mg/dL POC Glucose (mg/dL) 99 (75-99) mg/dL POC Glu Assistant Press Operator Offset ID Anu Calvin Calcium (8.4-10.2) mg/dL Total Bilirubin (0.2-1.3) mg/dL AST (14-36) U/L ALT (4-34) U/L Alkaline Phosphatase (38-126) U/L Troponin I (0.000-0.034) ng/mL Total Protein (6.3-8.2) g/dL Albumin (3.5-5.0) g/dL 03/13/20 03/13/20 Range/Units 12:03 12:03 WBC (3.8-10.6) k/uL RBC (3.80-5.40) m/uL Hgb (11.4-16.0) gm/dL Hct (34.0-46.0) % MCV (80.0-100.0) fL MCH (25.0-35.0) pg MCHC (31.0-37.0) g/dL RDW (11.5-15.5) % Plt Count (150-450) k/uL MPV Neutrophils % % Lymphocytes % % Monocytes % % Eosinophils % % Basophils % % Neutrophils # (1.3-7.7) k/uL Lymphocytes # (1.0-4.8) k/uL Monocytes # (0-1.0) k/uL Eosinophils # (0-0.7) k/uL Basophils # (0-0.2) k/uL PT (9.0-12.0) sec INR (<1.2) APTT (22.0-30.0) sec Sodium 136 L (137-145) mmol/L Potassium 3.8 (3.5-5.1) mmol/L Chloride 101 (98-107) mmol/L Carbon Dioxide 28 (22-30) mmol/L Anion Gap 7 mmol/L BUN 23 H (7-17) mg/dL Creatinine 1.22 H (0.52-1.04) mg/dL Est GFR (CKD-EPI)AfAm 48 (>60 ml/min/1.73 sqM) Est GFR (CKD-EPI)NonAf 42 (>60 ml/min/1.73 sqM) Glucose 84 (74-99) mg/dL POC Glucose (mg/dL) (75-99) mg/dL POC Glu Assistant Press Operator Offset ID Calcium 10.2 (8.4-10.2) mg/dL Total Bilirubin 0.8 (0.2-1.3) mg/dL AST 27 (14-36) U/L ALT 14 (4-34) U/L Alkaline Phosphatase 60 (38-126) U/L Troponin I <0.012 (0.000-0.034) ng/mL Total Protein 7.0 (6.3-8.2) g/dL Albumin 3.9 (3.5-5.0) g/dL Disposition Clinical Impression: Transient cerebral ischemia Disposition: ADMITTED IP TO THIS HOSP Referrals: India Tiwari DO [Primary Care Provider] - 1-2 days Time of Disposition: 13:53
[2020-03-13 12:15] LABS: Basophils # (A) 0.1 k/uL (0-0.2); Basophils % (A) 1 %; Eosinophils # (A) 0.1 k/uL (0-0.7); Eosinophils % (A) 1 %; HCT 36.2 % (34.0-46.0); HGB 12.5 gm/dL (11.4-16.0); Lymphocytes # (A) 1.7 k/uL (1.0-4.8); Lymphocytes % (A) 25 %; MCH 31.3 pg (25.0-35.0); MCHC 34.6 g/dL (31.0-37.0); MCV 90.6 fL (80.0-100.0); Monocytes # (A) 0.4 k/uL (0-1.0); Monocytes % (A) 6 %; Neutrophils # (A) 4.5 k/uL (1.3-7.7); Neutrophils % (A) 65 %; Platelet Count 291 k/uL (150-450); RBC 3.99 m/uL (3.80-5.40); RDW 13.6 % (11.5-15.5); WBC 6.9 k/uL (3.8-10.6)
[2020-03-13 12:24] LABS: Albumin 3.9 g/dL (3.5-5.0); Calcium 10.2 mg/dL (8.4-10.2); Total Bilirubin 0.8 mg/dL (0.2-1.3)
[2020-03-13 12:28] LABS: Potassium 3.8 mmol/L (3.5-5.1)
[2020-03-13 12:33] LABS: INR 0.9 (<1.2); Prothrombin Time 10.2 sec (9.0-12.0)
[2020-03-13 12:56] LABS: Partial Thromboplastin Time 17.8 sec (22.0-30.0)
--- NOTE | 2020-03-13 13:13 | CT ---
EXAMINATION TYPE: CT brain wo con for TPA DATE OF EXAM: 03/13/2020 COMPARISON: 04/23/2013 HISTORY: dysphasia CT DLP: 1092 mGycm Automated exposure control for dose reduction was used. There is cerebral cortical atrophy. There is no mass effect nor midline shift. There is no sign of in tracranial hemorrhage. Calvarium is intact. Skull base is intact. IMPRESSION: Cerebral atrophy. No acute intracranial abnormality. No change.
--- NOTE | 2020-03-13 13:24 | XR ---
EXAMINATION TYPE: XR chest 2V DATE OF EXAM: 03/13/2020 COMPARISON: 07/27/2017 HISTORY: Weakness. Slurred speech TECHNIQUE: 2 views FINDINGS: Heart is normal. There is no heart failure. There is no pleural effusion. There is 1.8 cm n odular density over the left midlung that is relatively dense and could be a granuloma. There are rebecca st leads. IMPRESSION: Left pulmonary nodule is not significantly different than old exam of 2018 and probably a granuloma. Normal heart. Nodule measures 1 cm on the old exam of 04/23/2013. Normal heart.
--- NOTE | 2020-03-13 13:32 | CT ---
EXAMINATION TYPE: CT angio head neck DATE OF EXAM: 03/13/2020 COMPARISON: None HISTORY: dysphasia CT DLP: 365.4 mGycm Automated exposure control for dose reduction was used. CONTRAST: Performed with IV Contrast, patient injected with 65 mL of Isovue 370. Images were obtained from the aortic arch to the vertex of the brain with IV contrast. There are 3-D post processed images. FINDINGS: There is arterial flow in both subclavian arteries. There is normal branching pattern of the great ve ssels on the aortic arch. There is arterial flow in the common internal and external carotid arteries bilaterally. There is plaque formation at the carotid artery bifurcations. There is estimated 40% st enosis at the origin of the right internal carotid artery. There is also moderate plaque posterior wa ll of the proximal right internal carotid artery with calcification and approximate 50% stenosis. I s ee no significant narrowing of the left internal carotid artery. There is arterial flow in both verte bral arteries. There is arterial flow in the vertebrobasilar artery system. There is no evidence of carotid or verte bral artery aneurysm or dissection. There is arterial flow in the anterior middle and posterior cerebral arteries. I see no evidence of i ntracranial aneurysm or neovascularity. There is normal enhancement of the venous sinuses. I see no i ntracranial arterial stenosis. There is no mass effect. IMPRESSION: There is approximate 50% stenosis of the proximal right internal carotid artery due to plaque formati on. No evidence of any significant stenosis of the left internal carotid artery. No intracranial angiographic abnormality.
[2020-03-13] MEDS ORDERED: ASPIRIN 325 MG TAB PO STA (13:54)
[2020-03-14 00:03] LABS: Cholesterol 195 mg/dL (<200); HDL Cholesterol 93 mg/dL (40-60); LDL Cholesterol,Calculated 86 mg/dL (0-99); Triglycerides 78 mg/dL (<150)
[2020-03-14] MEDS: LEVOTHYROXINE 112 MCG TAB PO SCH (06:18)
[2020-03-14] MEDS ORDERED: LORazepam 2 MG/ML INJ IV ONE (07:00)
--- NOTE | 2020-03-14 07:55 | P.HPIM ---
History of Present Illness H&P Date: 03/13/20 Chief Complaint: Garbled speech 79-year-old female presents emergency department because she had garbled speech earlier this morning and then again just prior to arrival. Patient states this morning she woke up in the first time she spoke she was not making any sense according to her . Those symptoms lasted approximately one half hours and went away. Patient continued on with her day at about 45 minutes prior to arrival she tried to speak to her son on the phone and it was again garbled speech she states that episode only lasted a few minutes. Patient denies any other symptoms. Patient denies headache patient denies numbness weakness. Patient denies any problems walking or coordinating. Patient denies any lightheadedness or dizziness. Patient denies any chest pain palpitations difficulty breathing shortness breath per patient denies any recent fever chills or cough. He has no symptoms EKG shows normal sinus rhythm at 62 bpm SD interval 180 QRSs 106 QT intervals 418 QTC is 424. Patient's EKG shows no ST segment elevation or depression. CT of the brain shows no acute normalities. CTA of the head and neck shows no acute abnormality. She had no further episodes of garbled speech on in the emergency department. Blood work reveals elevated BUN/creatinine of 23/1.2; sodium low at 136; CBC is unremarkable Patient is being admitted to the hospital for close observation of TIA Review of Systems REVIEW OF SYSTEMS: CONSTITUTIONAL: No fever, no malaise, no fatigue. HEENT: No recent visual problems or hearing problems. Denied any sore throat. CARDIOVASCULAR: No chest pain, orthopnea, PND, no palpitations, no syncope. PULMONARY: No shortness of breath, no cough, no hemoptysis. GASTROINTESTINAL: No diarrhea, no nausea, no vomiting, no abdominal pain. NEUROLOGICAL: No headaches, no weakness, no numbness. HEMATOLOGICAL: Denies any bleeding or petechiae. GENITOURINARY: Denies any burning micturition, frequency, or urgency. MUSCULOSKELETAL/RHEUMATOLOGICAL: Denies any joint pain, swelling, or any muscle pain. ENDOCRINE: Denies any polyuria or polydipsia. The rest of the 14-point review of systems is negative. Past Medical History Past Medical History: Cancer, Chest Pain / Angina, Eye Disorder, Thyroid Disorder Additional Past Medical History / Comment(s): HYPOTHYROID, SKIN AND CERVICAL CANCER. History of Any Multi-Drug Resistant Organisms: None Reported Past Surgical History: Joint Replacement Additional Past Surgical History / Comment(s): KATIANA CATARACT, THYROIDECTOMY-2006, MELANOMA REMOVED X2. Right/Left knee replacment Past Anesthesia/Blood Transfusion Reactions: Postoperative Nausea & Vomiting (PONV) Past Psychological History: No Psychological Hx Reported Smoking Status: Never smoker Past Alcohol Use History: None Reported, Occasional Additional Past Alcohol Use History / Comment(s): states drinks a glass of wine once a month Past Drug Use History: None Reported - Past Family History Mother Family Medical History: Coronary Artery Disease (CAD), Hyperlipidemia, Myocardial Infarction (OR) Additional Family Medical History / Comment(s): Smoker Father Family Medical History: Coronary Artery Disease (CAD), Hyperlipidemia, Hypertension, Myocardial Infarction (OR) Additional Family Medical History / Comment(s): Smoker Medications and Allergies Home Medications Medication Instructions Recorded Confirmed Type Cholecalciferol [Vitamin D3] 2,000 unit PO DAILY 08/18/14 03/13/20 History Aspirin [Adult Low Dose Aspirin EC] 81 mg PO DAILY 07/28/17 03/13/20 History Atorvastatin [Lipitor] 20 mg PO HS 03/25/18 03/13/20 History Isosorbide Mononitrate ER [Imdur] 60 mg PO BID 03/25/18 03/13/20 History Losartan Potassium 50 mg PO DAILY 03/25/18 03/13/20 History Nitroglycerin 0.4 mg SL DAILY PRN 03/25/18 03/13/20 History Alendronate Sodium [Fosamax] 70 mg PO SA 03/13/20 03/13/20 History Hydrochlorothiazide 12.5 mg PO DAILY 03/13/20 03/13/20 History [hydroCHLOROthiazide] Levothyroxine Sodium [Synthroid] 112 mcg PO DAILY 03/13/20 03/13/20 History Allergies Allergy/AdvReac Type Severity Reaction Status Date / Time nickel Allergy Swelling, Verified 03/13/20 13:57 REDNESS Physical Exam Vitals: Vital Signs Temp Pulse Pulse Resp BP BP Pulse Ox 03/13/20 15:11 98.0 F 62 16 112/59 97 03/13/20 14:35 98.0 F 65 16 112/59 97 03/13/20 14:00 62 16 115/55 01/10/21 13:30 60 18 124/63 99 03/13/20 13:15 116/52 03/13/20 12:30 58 L 14 114/51 100 03/13/20 12:15 57 L 15 122/62 100 03/13/20 11:46 97.7 F 68 16 136/54 98 03/13/20 11:45 98 Intake and Output 03/13/20 03/13/20 03/13/20 06:59 14:59 22:59 Intake Total 500 Balance 500 Intake: Intake, IV Titration 500 Amount Sodium Chloride 0.9% 500 500 ml 500 ml @ 999 mls/hr IV .Q31M STA Rx#:[id number] Other: Voiding Method Toilet Weight 60.781 kg - Constitutional General appearance: Present: average body habitus, cooperative, no acute distress - EENT Eyes: Present: anicteric sclerae, EOMI, PERRLA, normal appearance ENT: Present: hearing grossly normal, normal oropharynx Ears: bilateral: normal - Neck Neck: Present: normal ROM. Absent: lymphadenopathy, rigidity, thyromegaly Carotids: negative: bruit present Thyroid: bilateral: normal size, negative: enlarged, nodule - Respiratory Respiratory: bilateral: CTA, negative: rales, rhonchi, wheezing - Cardiovascular Rhythm: regular Heart sounds: normal: S1, S2 Abnormal Heart Sounds: Absent: systolic murmur, diastolic murmur - Gastrointestinal General gastrointestinal: Present: normal bowel sounds, soft. Absent: distended, organomegaly, tenderness - Genitourinary Genitourinary Comment(s): deferred - Integumentary Integumentary: Present: normal turgor. Absent: jaundiced, rash, ulcer - Neurologic Neurologic: Present: CNII-XII intact. Absent: focal deficits - Musculoskeletal Musculoskeletal: Present: gait normal, strength equal bilaterally - Psychiatric Psychiatric: Present: A&O x's 3, appropriate affect, intact judgment & insight Results CBC & Chem 7: 03/13/20 12:03 03/13/20 12:03 Labs: Abnormal Lab Results - Last 24 Hours (Table) 03/13/20 03/13/20 Range/Units 12:03 12:03 APTT 17.8 L (22.0-30.0) sec Sodium 136 L (137-145) mmol/L BUN 23 H (7-17) mg/dL Creatinine 1.22 H (0.52-1.04) mg/dL Thrombosis Risk Factor Assmnt - Choose All That Apply Any of the Below Risk Factors Present?: Yes Other Risk Factors: Yes Each Risk Factor Represents 3 Points: Age 75 years or older Other congenital or acquired thrombophilia - If yes, enter type in comment: No Thrombosis Risk Factor Assessment Total Risk Factor Score: 3 Thrombosis Risk Factor Assessment Level: Moderate Risk Assessment and Plan Assessment: 1. TIA/CVA - workup in ED including HCT/CTA is negative; symptoms resolved completely;we'll complete CVA workup with MRI of brain w/wo contrast, 2D ECHO with bubble study, carotid doppler; Vit B12 and folic acid levels, TSH; telemetry monitoring - plan discussed with patient and she is agreeable 2. HTN; stable on HCTZ, Losartan and Imdur 3. Hyperlipidemia; Lipitor 20mg qHS 4. Hypothyroidism; clinically euthyroid; continue with home dose of levoth yroxine 5. CAD; stable on Aspirin, statins and nitrates DVT Ppx; SCDs/SQ heparin CODE STATUS; FULL CODE
[2020-03-14] MEDS: ASPIRIN 325 MG TAB PO SCH (08:15)
[2020-03-14] MEDS: LOSARTAN 50 MG TAB PO SCH (08:16)
[2020-03-14] MEDS: CHOLECALCIFEROL 1,000 UNIT TAB PO SCH (08:16)
[2020-03-14] MEDS: CLOPIDOGREL 75 MG TAB PO SCH (08:16)
[2020-03-14 08:36] LABS: Basophils # (A) 0.1 k/uL (0-0.2); Basophils % (A) 1 %; Eosinophils # (A) 0.1 k/uL (0-0.7); Eosinophils % (A) 2 %; HCT 31.1 % (34.0-46.0); HGB 10.6 gm/dL (11.4-16.0); Lymphocytes # (A) 1.5 k/uL (1.0-4.8); Lymphocytes % (A) 35 %; MCH 31.2 pg (25.0-35.0); MCHC 34.1 g/dL (31.0-37.0); MCV 91.6 fL (80.0-100.0); Mean Platelet Volume 6.5; Monocytes # (A) 0.2 k/uL (0-1.0); Monocytes % (A) 5 %; Neutrophils # (A) 2.5 k/uL (1.3-7.7); Neutrophils % (A) 56 %; Platelet Count 262 k/uL (150-450); RBC 3.39 m/uL (3.80-5.40); RDW 13.7 % (11.5-15.5); WBC 4.5 k/uL (3.8-10.6)
--- NOTE | 2020-03-14 08:58 | US ---
EXAMINATION TYPE: US carotid duplex BILAT DATE OF EXAM: 03/14/2020 COMPARISON: CTA 2020 CLINICAL HISTORY: 79-year-old female TIA. TECHNIQUE: Carotid duplex ultrasound examination. Indirect Doppler criteria was utilized. FINDINGS: EXAM MEASUREMENTS: RIGHT: Peak Systolic Velocity (PSV) cm/sec ----- Right CCA: 96.1 ----- Right ICA: 162.0 ----- Right ECA: 115.0 ICA/CCA ratio: 1.7 RIGHT: End Diastole cm/sec ----- Right CCA: 17.0 ----- Right ICA: 34.2 ----- Right ECA: 0.0 LEFT: Peak Systolic Velocity (PSV) cm/sec ----- Left CCA: 101.0 ----- Left ICA: 121.0 ----- Left ECA: 110.0 ICA/CCA ratio: 1.2 LEFT: End Diastole cm/sec ----- Left CCA: 11.7 ----- Left ICA: 29.6 ----- Left ECA: 7.4 VERTEBRALS (direction of flow): Right Vertebral: Antegrade Left Vertebral: Antegrade Rhythm: Normal Reiki Practitioner notes: Bilateral intimal thickening, minimal plaque bilateral bulb and right prox ICA. M ildly elevated velocity: right mid ICA. No significant stenosis. IMPRESSION: Mildly elevated velocity mid right ICA may reflect a mild (less than 50%) narrowing. The end diastoli c velocity and ICA/CCA ratio does not lends support to a moderate stenosis. No hemodynamically signif icant internal carotid artery stenosis on either side. Criteria for Assigning % of Stenosis / Diameter reduction (Estimation based on the indirect measurements of the internal carotid artery velocities (ICA PSV). 1. Normal (no stenosis)=ICA PSV < 125 cm/s: ratio < 2.0: ICA EDV<40 cm/s. 2. Less than 50% stenosis=ICA PSV < 125 cm/s: ratio < 2.0: ICA EDV<40 cm/s. 3. 50 to 69% stenosis=ICA PSV of 125 to 230 cm/s: ration 2.0 ? 4.0: ICA EDV 40-100 cm/s. 4. Greater than 70% stenosis to near occlusion= ICA PSV > 230 cm/s: ratio > 4.0: ICA EDV > 100 cm/s. 5. Near occlusion= ICA PSV velocities may be low or undetectable: variable ratio and ICA EDV. 6. Total occlusion=unable to detect flow.
[2020-03-14 08:59] LABS: Calcium 9.7 mg/dL (8.4-10.2); Potassium 3.7 mmol/L (3.5-5.1)
[2020-03-14] MEDS ORDERED: hydroCHLOROthiazide 12.5 MG CAP PO SCH (09:00)
--- NOTE | 2020-03-14 15:56 | P.PN ---
Subjective Progress Note Date: 03/14/20 This is an 79-year-old female admitted with acute TIA/CVA, anxiety and multiple other medical issues. Reported initially presented with garbled speech prior to and after zoroastrian on Saturday with no blurred vision, no headache no chest pain,no palpitations, no lightheadedness, no dizziness. No focal deficits. Currently speaking fluently and appropriately. Complains of numbness of tongue, and reports minimal difficulty pronouncing. words. Carotid Doppler reported less than 50% narrowing of mid right ICA with no hemodynamic significant internal carotid artery stenosis on either side. CTA reported approximately 50% stenosis of proximal right internal carotid artery secondary to plaque with no signif icant stenosis of left internal carotid artery Brain CT reported no acute intracranial abnormality. Chest x-ray reported left pulmonary nodule not significantly different compared to prior exam of 2018, probably granuloma, normal heart. Objective - Vital Signs Vital signs: Vital Signs Temp 98.5 F 03/14/20 08:00 Pulse 70 03/14/20 11:23 Resp 18 03/14/20 08:00 BP 145/73 03/14/20 11:23 Pulse Ox 97 03/14/20 11:23 Intake & Output 03/13/20 03/14/20 03/14/20 18:59 06:59 18:59 Intake Total 740 240 Output Total 620 Balance 740 -620 240 Weight 60.781 kg 62 kg Intake: Intake, IV Titration 500 Amount Sodium Chloride 0.9% 500 500 ml 500 ml @ 999 mls/hr IV .Q31M STA Rx#:[id number] Oral 240 240 Output: Urine 620 Other: Voiding Method Toilet Toilet # Voids 2 4 - Exam PHYSICAL EXAM: VITAL SIGNS: As above GENERAL: Sitting up in bed, no acute distress, anxious HEENT: Conjunctivae normal. eyes normal. NECK: No JVD. No thyroid enlargement. No LNs CARDIOVASCULAR: S1, S2 regular. No murmur RESPIRATION: Breath sounds diminished in the bases. No rhonchi or crackles. No bronchial breathing. ABDOMEN: Soft, nontender . No guarding. no masses palpable. No ascites, No hepatosplenomegaly.Bowel sounds heard. LEGS: No edema. no swelling PSYCHIATRY: Alert and oriented X3, mood and affect normal. NERVOUS SYSTEM: Cranial N 2-12 grossly normal. Moves all 4 limbs. Diffuse weakness, No focal deficits. Strength and sensation grossly intact.. Skin: Warm and dry, no rash Lymphatic system. No LN neck axilla. - Labs CBC & Chem 7: 03/14/20 07:59 03/14/20 07:59 Labs: Abnormal Lab Results - Last 24 Hours (Table) 03/13/20 03/14/20 03/14/20 Range/Units 12:03 07:59 07:59 RBC 3.39 L (3.80-5.40) m/uL Hgb 10.6 L (11.4-16.0) gm/dL Hct 31.1 L (34.0-46.0) % BUN 19 H (7-17) mg/dL Creatinine 1.22 H (0.52-1.04) mg/dL Glucose 109 H (74-99) mg/dL HDL Cholesterol 93 H (40-60) mg/dL Assessment and Plan Assessment: Acute TIA, possibly CVA Acute renal failure, hydrochlorothiazide placed on hold anxiety Hypertension Hyperlipidemia Hypothyroidism CAD Plan: Continue on current medication regime, monitoring and symptomatically treatment. Continue on aspirin and statin. MRI pending. Neurology consulted. Close monitoring of renal function, electrolytes, hemoglobin with repeat labs ordered for a.m. Discharge planning in progress. The impression and plan of care has been dictated as directed. : I performed a history and examination of this patient, discussed the same with the dictator. I agree with the dictator's note ,documented as a scribe. Any additional findings or plans will be noted.
[2020-03-14] MEDS ORDERED: traZODone HCL 50 MG TAB PO PRN (18:16)
--- NOTE | 2020-03-14 18:32 | ECHOF ---
Referral Reason:tia MEASUREMENTS -------- HEIGHT: 162.6 cm WEIGHT: 61.7 kg BP: IVSd: 0.9 cm (0.6 - 1.1) LVIDd: 3.8 cm (3.9 - 5.3) LVPWd: 1.0 cm (0.6 - 1.1) IVSs: 1.7 cm LVIDs: 2.0 cm LVPWs: 1.7 cm LAESV Index (A-L): 17.31 ml/m Ao Diam: 2.5 cm (2.0 - 3.7) AV Cusp: 1.6 cm (1.5 - 2.6) LA Diam: 3.3 cm (2.7 - 3.8) MV EXCURSION: 11.844 mm (> 18.000) MV EF SLOPE: 40 mm/s (70 - 150) EPSS: 0.4 cm MV E Jefferson: 0.71 m/s MV DecT: 192 ms MV A Jefferson: 0.83 m/s MV E/A Ratio: 0.86 RAP: 15.00 mmHg RVSP: 21.24 mmHg FINDINGS -------- This was a technically adequate study. The left ventricular size is normal. Left ventricular wall thickness is normal. Overall left vent ricular systolic function is normal with, an EF between 55 - 60 %. The diastolic filling pattern is normal for the age of the patient 10.. The right ventricle is normal in size. The left atrial size is normal. Normal LA size by volume 22+/-6 ml/m2. The right atrial size is normal. The aortic valve is trileaflet and appears structurally normal. The mitral valve is normal. There is trace mitral regurgitation. The tricuspid valve appears structurally normal. Trace tricuspid regurgitation present. Right josé tricular systolic pressure is normal at < 35 mmHg. There is no pulmonic regurgitation present. The aortic root size is normal. The inferior vena cava is mildly dilated. There is no pericardial effusion. CONCLUSIONS -------- 1. The left ventricular size is normal. 2. Left ventricular wall thickness is normal. 3. Overall left ventricular systolic function is normal with, an EF between 55 - 60 %. 4. The diastolic filling pattern is normal for the age of the patient 10.83 5. The aortic valve is trileaflet and appears structurally normal. 6. There is trace mitral regurgitation. 7. Trace tricuspid regurgitation present. 8. The inferior vena cava is mildly dilated. 9. There is no pericardial effusion. GEOMAGNETIST: Juany Keller RDCS
[2020-03-14] MEDS: ISOSORBIDE MONONITRATE ER 60 MG TAB.ER.24H PO SCH (20:18)
--- NOTE | 2020-03-14 20:26 | MR ---
EXAMINATION TYPE: MR brain wo/w con DATE OF EXAM: 03/14/2020 COMPARISON: CT brain 03/13/2020 HISTORY: Dysphasia, TIA TECHNIQUE: Multiplanar, multisequence images of the brain and brainstem is performed without and with IV contras t, utilizing 6 mL intravenous Gadavist . FINDINGS: There is motion on the exam. Diffusion weighted images demonstrate restriction along the insula cortex on the right, focus of incr eased signal correlate and T2 and inversion recovery sequences measuring approximately 1 cm in size. There is no extra-axial fluid collection. Scattered and confluent hyperintensities on T2 and invers ion recovery sequences are present in the subcortical, periventricular, pericallosal and periventricu lar white matter The ventricular system and cisternal spaces are normal in size and appearance. The brain volume is age appropriate, there is cortical atrophy. Midline structures demonstrate normal morphology. The craniocervical junction appears within normal limits. Post contrast images demonstrate no abnormal enhancement. The dural venous sinuses appear pa tent. The visualized sinuses are clear and the globes are intact. IMPRESSION: Subacute infarct along the insula on the right. Age-related changes of atrophy and probab le chronic small vessel ischemic change. There is motion on exam.
[2020-03-14] MEDS ORDERED: ATORVASTATIN 20 MG TAB PO SCH (21:00)
[2020-03-14] MEDS ORDERED: CYANOCOBALAMIN 1,000 MCG/ML 1 ML VIAL IM ONE (22:30)
--- NOTE | 2020-03-14 22:45 | P.CNNES ---
History of Present Illness Consult date: 03/14/20 Requesting physician: Mariela Bolanos Reason for Consult: TIA History of Present Illness: Patient is a 79-year-old female came to the hospital yesterday at 11:33 AM for garbled speech earlier in the morning then again just prior to arrival. Patient states that she woke up at 6:45 AM in usual state of health. When at around 7 AM she started speaking, she was not making any sense according to her . The symptoms lasted approximately 20-30 minutes and then completely resolved. She did not seek medical attention. She went to anabaptism. When she came back home from anabaptism at around 12:30 PM, while she was talking to her son, when patient had a similar spell, in which her son was not able to understand what s he was talking. This time the symptoms lasted for 10-15 minutes. Her son and recommended her to go to the ER. No other symptoms. There was no headache, numbness or focal weakness. No problems with walking or coordination. Denies any lightheadedness or dizziness. No chest pain or breathing difficulty. No fever or chills or cough. Vital signs on arrival blood pressure 136/54, pulse rate [address] head showed cerebral atrophy, no acute process. CTA of head and neck showed about 50% stenosis of the proximal right ICA due to plaque formation. No evidence of any significant stenosis of the left ICA. No intracranial angiographic abnormality. Carotid Doppler revealed mildly elevated velocity mid right ICA may reflect a mild (less than 50%) narrowing. The end-diastolic velocity and ICA/CCA ratio does not lends support to a moderate stenosis. No hemodynamically significant internal carotid artery stenosis on either side. 2-D echo showed normal left-ventricular size. Left ventricular wall thickness is normal. EF is between 55-60%. Aortic valve is trileaflet and appears structurally normal. Trace MR. MRI of the brain revealed subacute infarct along the insula on the right. Age- related changes of atrophy and probable chronic small vessel ischemic change. Patient at home was on aspirin 81 mg and Lipitor 20 mg daily. Patient has been started on aspirin 325 mg, Plavix 75 mg in the hospital and continued on Lipitor 20 mg. Also on losartan 50 mg. patient denies diabetes. She has hypertension for long time. Never smoked tobacco. She drinks glass of wine very occasionally. Patient states that since she had knee surgeries in 2018, she has problem with taste sensation. B12 is 249, cholesterol 195, LDL 86, HDL 93 and triglycerides 78. Hepatic panel is normal. BUN 23, creatinine 1.22. Patient states that all day long today, patient has been noticing speech was more "deliberate", not quite as normal, although not garbled as yesterday. No other focal symptoms. Telemetry monitoring so far showing sinus rhythm. No A. fib. Review of Systems As mentioned above in detail. Patient denies headache any problem with the vision. Some speech difficulty. No hoarseness, sore throat, dysphagia. Denies fever or chills. Denies any chest pain shortness of breath wheezing or cough. Denies abdominal pain, nausea vomiting diarrhea. She had knee arthritis. Previous knee surgeries. No falls. No double vision. Past Medical History Past Medical History: Cancer, Chest Pain / Angina, Eye Disorder, Thyroid Disorder Additional Past Medical History / Comment(s): HYPOTHYROID, SKIN AND CERVICAL CANCER. History of Any Multi-Drug Resistant Organisms: None Reported Past Surgical History: Joint Replacement Additional Past Surgical History / Comment(s): KATIANA CATARACT, THYROIDECTOMY-2005, MELANOMA REMOVED X2. Right/Left knee replacment Past Anesthesia/Blood Transfusion Reactions: Postoperative Nausea & Vomiting (PONV) Past Psychological History: No Psychological Hx Reported Smoking Status: Never smoker Past Alcohol Use History: None Reported, Occasional Additional Past Alcohol Use History / Comment(s): states drinks a glass of wine once a month Past Drug Use History: None Reported - Past Family History Mother Family Medical History: Coronary Artery Disease (CAD), Hyperlipidemia, Myocardial Infarction (MT) Additional Family Medical History / Comment(s): Smoker Father Family Medical History: Coronary Artery Disease (CAD), Hyperlipidemia, Hypertension, Myocardial Infarction (MT) Additional Family Medical History / Comment(s): Smoker Medications and Allergies Home Medications Medication Instructions Recorded Confirmed Type Cholecalciferol [Vitamin D3] 2,000 unit PO DAILY 08/18/14 03/13/20 History Aspirin [Adult Low Dose Aspirin EC] 81 mg PO DAILY 07/28/17 03/13/20 History Atorvastatin [Lipitor] 20 mg PO HS 03/25/18 03/13/20 History Isosorbide Mononitrate ER [Imdur] 60 mg PO BID 03/25/18 03/13/20 History Losartan Potassium 50 mg PO DAILY 03/25/18 03/13/20 History Nitroglycerin 0.4 mg SL DAILY PRN 03/25/18 03/13/20 History Alendronate Sodium [Fosamax] 70 mg PO SA 03/13/20 03/13/20 History Hydrochlorothiazide 12.5 mg PO DAILY 03/13/20 03/13/20 History [hydroCHLOROthiazide] Levothyroxine Sodium [Synthroid] 112 mcg PO DAILY 03/13/20 03/13/20 History Allergies Allergy/AdvReac Type Severity Reaction Status Date / Time nickel Allergy Swelling, Verified 03/13/20 13:57 REDNESS Physical Examination - Vital Signs Vital Signs: Vital Signs Temp Pulse Resp BP Pulse Ox 03/14/20 15:57 69 18 139/69 96 03/14/20 11:23 70 145/73 97 03/14/20 08:00 98.5 F 70 18 129/50 97 03/14/20 03:54 57 L 18 118/56 95 03/14/20 02:00 63 18 03/14/20 00:00 63 18 106/51 96 Intake and Output 03/14/20 03/14/20 03/14/20 06:59 14:59 22:59 Intake Total 240 240 Output Total 620 Balance -620 240 240 Intake: Oral 240 240 Output: Urine 620 Other: Voiding Method Toilet # Voids 2 4 Weight 62 kg On examination patient is an elderly female, very pleasant in no acute distress. Patient is alert awake oriented to time place and person. Speech and language functions are normal. Patient can name, repeat and follow commands very well. No obvious aphasia or dysarthria. Attention and concentration fund of knowledge is adequate. On cranial nerve exam vision pupils are round and reacting to light, visual guzman are full on confrontation, extraocular muscles are intact with no nystagmus. Face is symmetric, tongue protrudes to the midline. Palatal elevation sensation normal. Hearing and shoulder shrug normal. On muscle strength testing there is no pronator drift and the strength is normal in arms and legs distally and proximally. Reflexes are symmetric 1+ to 2+ and plantars downgoing. Sensory to touch is equal, with no neglect on double simultaneous stimulation. No ataxia for [id number] testing, tone and bulk of muscles normal. Gait deferred. Patient states she has no problems walking. On general examination there is no obvious bruit, S1 and S2 audible, abdomen soft nontender, chest is clear. Peripheral pulses present. No edema. Results - Laboratory Findings CBC and BMP: 03/14/20 07:59 03/14/20 07:59 Abnormal Lab Findings: Abnormal Labs 03/13/20 03/13/20 03/13/20 12:03 12:03 12:03 RBC Hgb Hct APTT 17.8 L Sodium 136 L BUN 23 H Creatinine 1.22 H Glucose HDL Cholesterol 93 H 03/14/20 03/14/20 07:59 07:59 RBC 3.39 L Hgb 10.6 L Hct 31.1 L APTT Sodium BUN 19 H Creatinine 1.22 H Glucose 109 H HDL Cholesterol Assessment and Plan Assessment: * Acute to subacute CVA (small size), right insula on the right. * Moderate right ICA stenosis 50%, likely symptomatic. * Hypertension * Dyslipidemia Plan: * Agree with placing dual antiplatelet medication. After 3 weeks, may stop aspirin, and maintain on Plavix 75 mg daily. Patient has failed aspirin. * Increase Lipitor from 20 to 40 mg daily. * Repeat carotid Doppler in 6 months to follow-up on right ICA stenosis. * Patient's B12 was borderline, we'll start replacement.
[2020-03-14] MEDS: ATORVASTATIN 40 MG TAB PO SCH (22:51)
[2020-03-14 23:41] LABS: Folate, Serum 6.8 ng/mL
[2020-03-15] MEDS: LEVOTHYROXINE 112 MCG TAB PO SCH (06:08)
[2020-03-15 08:09] LABS: Basophils # (A) 0.1 k/uL (0-0.2); Basophils % (A) 1 %; Eosinophils # (A) 0.1 k/uL (0-0.7); Eosinophils % (A) 2 %; HCT 33.7 % (34.0-46.0); HGB 11.2 gm/dL (11.4-16.0); Lymphocytes # (A) 1.5 k/uL (1.0-4.8); Lymphocytes % (A) 29 %; MCH 30.5 pg (25.0-35.0); MCHC 33.2 g/dL (31.0-37.0); MCV 91.9 fL (80.0-100.0); Mean Platelet Volume 6.5; Monocytes # (A) 0.3 k/uL (0-1.0); Monocytes % (A) 5 %; Neutrophils # (A) 3.1 k/uL (1.3-7.7); Neutrophils % (A) 62 %; Platelet Count 269 k/uL (150-450); RBC 3.66 m/uL (3.80-5.40); RDW 13.7 % (11.5-15.5); WBC 5.1 k/uL (3.8-10.6)
[2020-03-15 08:39] LABS: Calcium 9.9 mg/dL (8.4-10.2); Potassium 4.2 mmol/L (3.5-5.1)
[2020-03-15] MEDS: LOSARTAN 50 MG TAB PO SCH (09:28)
[2020-03-15] MEDS: ASPIRIN 325 MG TAB PO SCH (09:28)
[2020-03-15] MEDS: ATORVASTATIN 40 MG TAB PO SCH (09:28)
[2020-03-15] MEDS: CHOLECALCIFEROL 1,000 UNIT TAB PO SCH (09:28)
[2020-03-15] MEDS: CLOPIDOGREL 75 MG TAB PO SCH (09:28)
[2020-03-15] MEDS: ISOSORBIDE MONONITRATE ER 60 MG TAB.ER.24H PO SCH (09:29)
--- NOTE | 2020-03-15 10:17 | P.DS ---
Providers Date of admission: 03/13/20 14:04 Expected date of discharge: 03/15/20 Attending physician: Rafael Anne MD Consults: 03/14/20 10:12 Consult Physician Routine Consulting Provider: Hardik Randolhp Consult Reason/Comments: TIA Do you want consulting provider notified?: Yes Primary care physician: [place] Tiwari [facility] Course: Final Diagnoses: Acute to subacute small right insula CVA Moderate right ICA stenosis 50%, further follow-up and outpatient with repeat carotid in 6 months. Acute renal failure, hydrochlorothiazide placed on hold, reevaluate outpatient anxiety Hypertension Hyperlipidemia Hypothyroidism CAD This is an 79-year-old female admitted with acute TIA/CVA, anxiety and multiple other medical issues. Reported initially presented with garbled speech prior to and after yazdanism on Saturday with no blurred vision, no headache no chest pain,no palpitations, no lightheadedness, no dizziness. No focal deficits. Currently speaking fluently and appropriately. Complains of numbness of tongue, and reports minimal difficulty pronouncing. words. Carotid Doppler reported less than 50% narrowing of mid right ICA with no hemodynamic significant internal carotid artery stenosis on either side. CTA reported approximately 50% stenosis of proximal right internal carotid artery secondary to plaque with no significant stenosis of left internal carotid artery Brain CT reported no acute intracranial abnormality. Chest x-ray reported left pulmonary nodule not significantly different compared to prior exam of 2018, probably granuloma, normal heart. Evaluated by neurology, recommendations noted and appreciated. Brain MRI reported subacute infarct along the right insula. Maintained on dual antiplatelet medication, Plavix and aspirin, as patient failed aspirin therapy. After 3 weeks may stop aspirin as per neurology. Lipitor increased to 40 mg daily. Hydrochlorothiazide placed on hold secondary to acute renal failure, creatinine currently 1.26. Systolic blood pressure ranging from the 90s to 110s, Imdur dose decreased. Echo reported normal LV function, EF 55-60%, trace mitral regurgitation, trace tricuspid regurgitation. Significant clinical improvement. Patient's speech clear, appropriate, cranial nerves II through XII grossly intact, states she still at times has to concentrate prior to speaking Patient will be discharged home today pending final DC recommendations and clearance from neurology. The impression and plan of care has been dictated as directed. : I performed a history and examination of this patient, discussed the same with the dictator. I agree with the dictator's note ,documented as a scribe. Any additional findings or plans will be noted. Patient Condition at Discharge: Stable Plan - Discharge Summary Discharge Rx Participant: No New Discharge Prescriptions: New Aspirin 325 mg PO DAILY tab Atorvastatin [Lipitor] 40 mg PO DAILY #30 tab Clopidogrel [Plavix] 75 mg PO DAILY #30 tab Aspirin EC [Ecotrin Low Dose] 81 mg PO DAILY #30 tablet. Famotidine [Pepcid] 20 mg PO BID #60 tablet Isosorbide Mononitrate ER [Imdur] 30 mg PO BID #60 tab.er.24h Continue Cholecalciferol [Vitamin D3 (25 Mcg = 1000 Iu)] 2,000 unit PO DAILY Isosorbide Mononitrate ER [Imdur] 60 mg PO BID Nitroglycerin 0.4 mg SL DAILY PRN PRN Reason: CHEST PAIN Losartan Potassium 50 mg PO DAILY Levothyroxine Sodium [Synthroid] 112 mcg PO DAILY Alendronate Sodium [Fosamax] 70 mg PO SA Discontinued Aspirin [Adult Low Dose Aspirin EC] 81 mg PO DAILY Atorvastatin [Lipitor] 20 mg PO HS Discharge Medication List Cholecalciferol [Vitamin D3 (25 Mcg = 1000 Iu)] 2,000 unit PO DAILY 08/18/14 [History] Isosorbide Mononitrate ER [Imdur] 60 mg PO BID 03/25/18 [History] Losartan Potassium 50 mg PO DAILY 03/25/18 [History] Nitroglycerin 0.4 mg SL DAILY PRN 03/25/18 [History] Alendronate Sodium [Fosamax] 70 mg PO SA 03/13/20 [History] Levothyroxine Sodium [Synthroid] 112 mcg PO DAILY 03/13/20 [History] Aspirin 325 mg PO DAILY tab 03/15/20 [Rx] Aspirin EC [Ecotrin Low Dose] 81 mg PO DAILY #30 tablet. 03/15/20 [Rx] Atorvastatin [Lipitor] 40 mg PO DAILY #30 tab 03/15/20 [Rx] Clopidogrel [Plavix] 75 mg PO DAILY #30 tab 03/15/20 [Rx] Famotidine [Pepcid] 20 mg PO BID #60 tablet 03/15/20 [Rx] Isosorbide Mononitrate ER [Imdur] 30 mg PO BID #60 tab.er.24h 03/15/20 [Rx] Follow up Appointment(s)/Referral(s): Rafael Anne MD [STAFF PHYSICIAN] - 3 Days Mario Mir DO [STAFF PHYSICIAN] - 2 Weeks Activity/Diet/Wound Care/Special Instructions: Pending final DC recommendations and clearance from neurology. Confirm aspirin dose with neurology. Dual anticoagulation with both aspirin and Plavix. DC aspirin after 3 weeks.(Failed aspirin therapy) Hydrochlorothiazide on hold, secondary to renal function, reevaluate outpatient Follow-up with PCP for further recommendations. Imdur decreased to 30 mg twice a day, patient's blood pressure has been ranging from low 110s to 90s. Blood pressure daily in a.m. upon awakening, maintain log and take to follow-up visit with PCP for further recommendations.
[2020-03-15] MEDS ORDERED: CYANOCOBALAMIN 1,000 MCG/ML 1 ML VIAL IM ONE (10:30)
[2020-03-15] MEDS ORDERED: FOLIC ACID 1 MG TAB PO SCH (10:30)
[2020-03-15 14:23] VITALS: BP 105/51; PULSE 76; RESP 18; TEMP 98.4
--- NOTE | 2020-03-15 14:35 | P.PN ---
Subjective Progress Note Date: 03/15/20 Patient denies any focal symptoms or headache or dizziness. Still sometimes feels mild slurring of words. No visual symptoms. Objective - Vital Signs Vital signs: Vital Signs Temp 98.4 F 03/15/20 08:00 Pulse 76 03/15/20 08:00 Resp 18 03/15/20 08:00 BP 105/51 03/15/20 08:00 Pulse Ox 98 03/15/20 08:00 Intake & Output 03/14/20 03/15/20 03/15/20 18:59 06:59 18:59 Intake Total 480 240 Balance 480 240 Weight 52.2 kg Intake: Oral 480 240 Other: Voiding Method Toilet Toilet # Voids 4 1 - Exam Mental status, speech and linguistic function is normal. She has mild slurring noticed. It only occurs with certain syllables and very sporadically. It was noted yesterday also. Did not document on yesterday note. - Labs CBC & Chem 7: 03/15/20 07:45 03/15/20 07:45 Labs: Abnormal Lab Results - Last 24 Hours (Table) 03/15/20 03/15/20 Range/Units 07:45 07:45 RBC 3.66 L (3.80-5.40) m/uL Hgb 11.2 L (11.4-16.0) gm/dL Hct 33.7 L (34.0-46.0) % BUN 21 H (7-17) mg/dL Creatinine 1.26 H (0.52-1.04) mg/dL Glucose 123 H (74-99) mg/dL Assessment and Plan Assessment: * Acute to subacute CVA (small size), right insula on the right. * Moderate right ICA stenosis 50%, likely symptomatic. * Hypertension * Dyslipidemia Plan: * Agree with placing dual antiplatelet medication. After 3 weeks, may stop aspirin, and maintain on Plavix 75 mg daily. Patient has failed aspirin. * Increase Lipitor from 20 to 40 mg daily. * Repeat carotid Doppler in 6 months to follow-up on right ICA stenosis. * Patient's B12 was borderline, has received IM B-12 replacement. Folic acid 6.8, also started on replacement. * Telemetry monitoring showing sinus rhythm with sinus bradycardia, some PVCs. First-degree AV block.
[2020-03-15 17:25] LABS: Hemoglobin A1C 5.8 % (4.0-6.0)
[2020-03-15] MEDS ORDERED: ISOSORBIDE MONONITRATE ER 30 MG TAB.ER.24H PO SCH (21:00)
== END 2020-03-15 14:24 | disposition home or self-care (01) ==
LOC: EC 11:33 → 3SCARD 14:04 → INTOOBSV 14:04 → 3SCARD 14:25
PROVIDERS: ADMIT Family Medicine; ATTEND Family Medicine
DX: I63.9 Cerebral infarction, unspecified (principal); I65.21 Occlusion and stenosis of right carotid artery; N17.9 Acute kidney failure, unspecified; I10 Essential (primary) hypertension; F41.9 Anxiety disorder, unspecified; I25.10 Atherosclerotic heart disease of native coronary artery without angina pectoris; E78.5 Hyperlipidemia, unspecified; E89.0 Postprocedural hypothyroidism; R91.1 Solitary pulmonary nodule; Z79.890 Hormone replacement therapy; Z79.82 Long term (current) use of aspirin; Z79.899 Other long term (current) drug therapy; Z79.83 Long term (current) use of bisphosphonates; Z91.048 Other nonmedicinal substance allergy status; Z85.41 Personal history of malignant neoplasm of cervix uteri; Z85.850 Personal history of malignant neoplasm of thyroid; Z85.820 Personal history of malignant melanoma of skin; Z96.651 Presence of right artificial knee joint; Z82.49 Family history of ischemic heart disease and other diseases of the circulatory system
CPT/HCPCS: 96372 ×2; 96374; 96361; 99285; 36415; 93005; 93306; 97161; 97165; 92523; 80061; 80053; 80048 ×2; 82607; 82746; 84484; 85025 ×3; 85610; 85730; 83036; 71046; 93880; 70496; 70450; 70498; 70553; G0378 ×3; J2060; J3420 ×2; A9585; Q9967

== ENCOUNTER → 2021-01-10 | Outpatient (CLI) | payer MEDICARE, BC ==
--- NOTE | 2021-01-12 11:26 | MM ---
Reason for exam: screening (asymptomatic). Last mammogram was performed 1 year and 5 months ago. History: Patient is postmenopausal and has history of other cancer at age 68. Family history of breast cancer in maternal aunt. Benign right mammotome panel of the right breast, February 06, 2013. Took estrogen for 5 years beginning at age 48. Physical Findings: A clinical breast exam by your physician is recommended on an annual basis and results should be correlated with mammographic findings. MG 3D Screening Mammo W/Cad Bilateral CC and MLO view(s) were taken. Prior study comparison: August 20, 2019, bilateral MG 3d screening mammo w/cad. April 25, 2018, bilateral MG 3d screening mammo w/cad. There are scattered fibroglandular densities. Previous mammotome biopsy in the right breast. There is chronic nodularity bilaterally. No significant changes when compared with prior studies. ASSESSMENT: Benign, BI-RAD 2 RECOMMENDATION: Routine screening mammogram of both breasts in 1 year.
== END | disposition home or self-care (01) ==
LOC: RADMAMWWP 13:14
PROVIDERS: ATTEND Family Medicine
DX: Z12.31 Encounter for screening mammogram for malignant neoplasm of breast (principal); Z78.0 Asymptomatic menopausal state; Z80.3 Family history of malignant neoplasm of breast
CPT/HCPCS: 77063; 77067

== ENCOUNTER → 2022-06-14 | Outpatient (CLI) | payer MEDICARE, BC ==
[~2022-06-14] MED LIST changes: -ALPRAZolam 0.25 MG TAB PO PRN; -ALPRAZolam 0.5 MG TAB PO PRN; -ASPIRIN 325 MG TAB PO ONE; -ATORVASTATIN 20 MG TAB PO SCH; -ATORVASTATIN 80 MG TAB PO ONE; -CHOLECALCIFEROL 1,000 UNIT TAB PO SCH; +DENOSUMAB 60 MG/ML 1 ML SYRINGE SQ ONE; -HEPARIN SODIUM 1,000 UN/ML (10ML VL) IV ONE; -IOPAMIDOL-370 125ML BTL INJ ONE; -ISOSORBIDE MONONITRATE ER 30 MG TAB.ER.24H PO SCH; -LEVOTHYROXINE 137 MCG TAB PO SCH; -LEVOTHYROXINE SODIUM PO SCH; -LIDOCAINE 1% INJ 10MG/ML (20 ML MDV) SQ ONE; -LOSARTAN 50 MG TAB PO SCH; -MIDAZOLAM 2 MG/2 ML VIAL IVP ONE; -NITROGLYCERIN SL TABS 0.4 MG TAB SUBLINGUAL PRN; -NON FORMULARY DRUG (Aspirin [Adult Low Dose Aspirin Ec] 81 MG) PO SCH; -RX INFO: IV CONTRAST WAS GIVEN 1 EACH MISC MISCELLANE PRN; -SODIUM CHLORIDE 0.9% 1,000 ML IV SCH; -SODIUM CHLORIDE 0.9% 1,000 ML in EMPTY BAG 1 BAG IV ONE; -VERAPAMIL SYRINGE (5 MG/10 ML) INTRAARTER ONE; -fentaNYL (PF) 50 MCG/ML 2 ML AMP IVP ONE
[2022-06-14 13:09] VITALS: BP 169/61; PULSE 59; RESP 16; TEMP 98.3
== END ==
LOC: PROCWHC3 12:45
PROVIDERS: ATTEND Family Medicine
DX: M81.0 Age-related osteoporosis without current pathological fracture (principal); Z91.048 Other nonmedicinal substance allergy status
CPT/HCPCS: 96372; J0897

== ENCOUNTER → 2023-08-02 | Outpatient (CLI) | payer MEDICARE, BC ==
--- NOTE | 2023-08-05 09:36 | MM ---
Reason for Exam: Screening (asymptomatic). Last mammogram was performed 2 year(s) and 6 month(s) ago. Patient History: Menarche at age 10. First Full-Term at age 18. Left ovary removed at age 70. Right ovary removed at age 33. Hysterectomy at age 33. Postmenopausal. Other cancer, age 68. Estrogen, starting at age 48 for 5 years. 02/06/2013, Benign Core Biopsy on the right side. Maternal aunt had breast cancer. Risk Values: Rebecca 5 year model risk: 1.4%. NCI Lifetime model risk: 1.4%. Prior Study Comparison: 04/25/2018 Bilateral Screening Mammogram, [facility]. 08/20/2019 Bilateral Screening Mammogram, [facility]. 01/10/2021 Bilateral Screening Mammogram, [facility]. Tissue Density: The breasts are heterogeneously dense, which may obscure small masses. Findings: Analyzed By CAD. Right breast: There is no suspicious group of microcalcifications or new suspicious mass. Benign-appearing calcifications right breast. Left breast: There is no suspicious group of microcalcifications or new suspicious mass. Benign-appearing calcifications left breast. Overall Assessment: Benign, BI-RAD 2 Management: Screening Mammogram of both breasts in [address] [facility] will attempt to contact patient to return for supplemental views and ultrasound if indicated. Patient should continue monthly self-breast exams. A clinical breast exam by your physician is recommended on an annual basis. This exam should not preclude additional follow-up of suspicious palpable abnormalities. Note on Rebecca scores and lifetime risk: 1. A Rebecca score greater than 3% is considered moderate risk. If this is the case, consider specialist referral to assess eligibility for a risk reducing agent. 2. If overall lifetime risk for the development of breast cancer is 20% or higher, the patient may qualify for future screening with alternating mammogram and breast MRI. Electronically signed and approved by: Addy Garcia DO
== END | disposition home or self-care (01) ==
LOC: RADMAMWWP 12:57
PROVIDERS: ATTEND Family Medicine
DX: Z12.31 Encounter for screening mammogram for malignant neoplasm of breast (principal); Z80.3 Family history of malignant neoplasm of breast; Z78.0 Asymptomatic menopausal state
CPT/HCPCS: 77063; 77067

== ENCOUNTER → 2024-07-13 | Outpatient (CLI) | payer MEDICARE, BC ==
[2024-07-13] MEDS: DENOSUMAB 60 MG/ML 1 ML SYRINGE SQ NR (12:48)
[2024-07-13 12:50] VITALS: BP 133/74; PULSE 93; RESP 18; TEMP 98.7
== END ==
LOC: PROCWHC3 12:36
PROVIDERS: ATTEND Family Medicine
DX: M81.0 Age-related osteoporosis without current pathological fracture (principal)
CPT/HCPCS: 96372; J0897